=== PATIENT | male | born 1940 | race Asian ===

== ENCOUNTER 2016-12-03 09:01 | Outpatient (CLI) | payer OTHER, MEDICARE ==
[~2016-12-03 09:01] MED LIST: ASPI81TA2 PO; FINA5TAB3 PO; GLIM4TAB PO; INSU100V11 SQ; LISI-217 PO; METF1000 PO; PRAV40TA PO; PROP60TA19 PO; TAMS0.4C96 PO
[2016-12-03] MEDS ORDERED: BARIUM SULFATE 135 ML SUSP.RECON (E-Z-HD) PO ONE (09:28)
== END 2016-12-03 20:00 | disposition home or self-care (01) ==
LOC: SRD 09:01
PROVIDERS: ATTEND Otolaryngology
DX: R13.10 Dysphagia, unspecified (principal); R05 Cough
CPT/HCPCS: 74230; 92611-GN

== ENCOUNTER 2016-12-18 22:39 | Emergency (ER) | payer OTHER, MEDICARE ==
[~2016-12-18] VITALS: Ht 172.7 cm; Wt 83.9 kg
[2016-12-18 22:50] VITALS: BP 158/88; PULSE 77; RESP 18; TEMP 97.8; O2SAT 98
--- NOTE | 2016-12-18 22:50 | NUR ---
Pt reports having high blood pressure of 191/90, right before coming to the hospital. Pt denies having any chest pain, SOB, N/V etc. Reports he "feels fine" and that his blood pressure reading was high on his BP monitor at home. BP currently 158/88. No acute distress noted. Respirations even and unlabored. Will continue to monitor.
--- NOTE | 2016-12-18 22:50 | NUR ---
Placed in room 02 . Placed on lunchroom monitor, blood pressure machine and pulse oximeter. To gown for exam. Side rails up. Report given to MyANA.
--- NOTE | 2016-12-18 22:57 | NUR ---
ER Dr. Albright at bedside examining patient.
--- NOTE | 2016-12-18 23:05 | NUR ---
Pt BP currently 142/82, instructed to hold vasotec at this time
[2016-12-18] MEDS ORDERED: INSU100V9 SUBCUT (23:14)
[2016-12-18 23:22] LABS: HEMATOCRIT 38.8 % (36-54); MEAN CORPUSCULAR VOLUME 91 fL (79.0-98.0); RED BLOOD CELL COUNT(AUTO) 4.27 MIL/uL (4.2-6.2); WHITE BLOOD COUNT (AUTO) 5.2 K/uL (4.8-10.8)
[2016-12-18 23:23] LABS: BASOPHILS % (AUTO) 0.5 % (0.0-2.0); EOSINOPHILS # (AUTO) 0.3 K/uL (0.0-0.4); EOSINOPHILS % (AUTO) 6.3 % (0.0-4.0); LYMPHOCYTES # (AUTO) 1.6 K/uL (1.0-5.5); LYMPHOCYTES % (AUTO) 31.5 % (20.5-51.5); MEAN CORPUSCULAR HEMOGLOBIN 30 pg (27-31); MEAN CORPUSCULAR HGB CONC 33 % (32-36); MONOCYTES # (AUTO) 0.4 K/uL (0.0-1.0); NEUTROPHILS # (AUTO) 2.9 K/uL (1.8-7.7); NEUTROPHILS % (AUTO) 54.7 % (40.0-70.0); PLATELET COUNT (AUTO) 238 K/uL (130-430); RED CELL DISTRIBUTION WIDTH 12.8 % (9.0-15.0)
[2016-12-18] MEDS: ENALAPRILAT DIHYDRATE 1.25 MG/ML VIAL IVP ONE (23:23)
[2016-12-18 23:38] LABS: SODIUM SERUM 132 mmol/L (136-145)
[2016-12-18 23:39] LABS: ALANINE AMINOTRANSFERASE 28 U/L (12-78); ALBUMIN 3.6 g/dL (3.4-4.8); ANION GAP < 3 (5-15); ASPARTATE AMINOTRANSFERASE 19 U/L (10-37); CALCIUM 8.9 mg/dL (8.4-11.0); CHLORIDE 100 mmol/L (98-107); CREATININE 1.17 mg/dL (0.55-1.30); GLUCOSE 134 mg/dL (70-99); POTASSIUM 4.3 mmol/L (3.5-5.1); TOTAL BILIRUBIN 0.4 mg/dL (0.0-1.0); TOTAL PROTEIN, SERUM 8.8 g/dL (6.4-8.3); UREA NITROGEN, BLOOD 24 mg/dL (8-21)
[2016-12-18 23:41] LABS: PROTHROMBIN TIME 10.3 SECS (9.5-12.5)
[2016-12-18 23:42] LABS: INR 0.9 (0.80-1.20)
--- NOTE | 2016-12-19 00:04 | NUR ---
Patient given written and verbal discharge instructions and verbalizes understanding. ER MD discussed with patient the results and treatment provided. Patient in stable condition. ID arm band removed. Patient educated on HTN management and to follow up with PMD. Pain Scale 0/10. Opportunity for questions provided and answered.
[2016-12-19] MEDS: ENALAPRILAT DIHYDRATE 1.25 MG/ML VIAL IVP ONE (00:09)
== END 2016-12-19 00:04 | disposition home or self-care (01) ==
LOC: SED 22:39
DX: I10 Essential (primary) hypertension (principal); E78.00 Pure hypercholesterolemia, unspecified; E11.9 Type 2 diabetes mellitus without complications; Z79.4 Long term (current) use of insulin; Z79.82 Long term (current) use of aspirin; Z88.8 Allergy status to other drugs, medicaments and biological substances
CPT/HCPCS: 36415; 80053; 83880; 84484; 85025; 85379; 85610-TC; 85730-TC; 99284

== ENCOUNTER 2017-04-06 09:50 | Emergency (ER) | payer OTHER, MEDICARE ==
[~2017-04-06] VITALS: Ht 172.7 cm; Wt 83.9 kg
[~2017-04-06 09:50] MED LIST changes: -INSU100V11 SQ; +INSU100V9 SUBCUT
[2017-04-06 09:58] VITALS: BP_SYST 119
--- NOTE | 2017-04-06 10:02 | NUR ---
Patient to ER bed 02 to gown for evaluation. Side rails up. Report given to Memo
--- NOTE | 2017-04-06 10:05 | NUR ---
ER at bedside examining patient.
--- NOTE | 2017-04-06 10:20 | NUR ---
brought in by his , c/o right shoulder pain,limited ROM for three days,denies any injuries.
--- NOTE | 2017-04-06 10:27 | NUR ---
transported to [facility] via wheelchair
--- NOTE | 2017-04-06 10:57 | NUR ---
return back from [facility]
[2017-04-06] MEDS ORDERED: traMADol HCL HCL 50 MG TABLET (ULTRAM) PO ONE (11:00)
[2017-04-06] MEDS ORDERED: ONDANSETRON 4 MG ODT TAB PO ONE (11:00)
[2017-04-06 11:53] VITALS: BP_SYST 119
--- NOTE | 2017-04-06 11:54 | NUR ---
Patient given written and verbal discharge instructions and verbalizes understanding. ER MD discussed with patient the results and treatment provided. Patient in stable condition. ID arm band removed. Rx of Tramadol ,Zofran ,Tylenol given. Patient educated on pain management and to follow up with PMD. Pain Scale 3/10 tolerable for pt . Opportunity for questions provided and answered.
== END 2017-04-06 11:54 | disposition home or self-care (01) ==
LOC: SED 09:50
DX: M25.511 Pain in right shoulder (principal); I10 Essential (primary) hypertension; E11.9 Type 2 diabetes mellitus without complications; E78.00 Pure hypercholesterolemia, unspecified; Z79.82 Long term (current) use of aspirin; Z88.6 Allergy status to analgesic agent
CPT/HCPCS: 29105; 73030; 99284; Q0162

== ENCOUNTER 2019-03-21 23:43 | Emergency (ER) | payer OTHER, MEDICARE ==
[~2019-03-21] VITALS: Ht 170.2 cm; Wt 81.6 kg
[~2019-03-21 23:43] MED LIST changes: +ASPI-1155 PO; -ASPI81TA2 PO; +CALC-808 PO; +CARB-15 PO; +CARB-62 PO; +DILT120C89 PO; +GABA-529 PO; +GLUC-141 PO; +LISI-219 PO; +METO25TA3 PO; +MULT-1164 PO; +PRAM0.253 PO; +SOLI5TAB2 PO
[2019-03-22 00:01] VITALS: BP_SYST 129
[2019-03-22] MEDS ORDERED: NACL 0.9% 1,000 ML IV ONE ×2 (00:26→02:15)
[2019-03-22 01:01] LABS: BASOPHILS % (AUTO) 0.2 % (0.0-2.0); EOSINOPHILS % (AUTO) 0.3 % (0.0-4.0); HEMATOCRIT 37.7 % (36-54); HEMOGLOBIN 12.4 g/dL (14.0-18.0); LYMPHOCYTES # (AUTO) 0.8 K/uL (1.0-5.5); LYMPHOCYTES % (AUTO) 6.2 % (20.5-51.5); MEAN CORPUSCULAR HEMOGLOBIN 30 pg (27-31); MEAN CORPUSCULAR HGB CONC 33 % (32-36); MEAN CORPUSCULAR VOLUME 93 fL (79.0-98.0); MONOCYTES # (AUTO) 0.5 K/uL (0.0-1.0); MONOCYTES % (AUTO) 3.9 % (1.7-9.3); NEUTROPHILS % (AUTO) 89.4 % (40.0-70.0); PLATELET COUNT (AUTO) 318 K/uL (130-430); RED BLOOD CELL COUNT(AUTO) 4.06 MIL/uL (4.2-6.2); RED CELL DISTRIBUTION WIDTH 13.4 % (9.0-15.0); WHITE BLOOD COUNT (AUTO) 12.3 K/uL (4.8-10.8)
[2019-03-22 01:09] LABS: ANION GAP 7 (5-15); CALCIUM 9.9 mg/dL (8.4-11.0); CHLORIDE 92 mmol/L (98-107); CREATININE 1.09 mg/dL (0.55-1.30); GLUCOSE 160 mg/dL (70-99); POTASSIUM 4.4 mmol/L (3.5-5.1); SODIUM SERUM 125 mmol/L (136-145); UREA NITROGEN, BLOOD 26 mg/dL (8-21)
[2019-03-22 01:12] LABS: INR 0.9 (0.80-1.20); PROTHROMBIN TIME 9.7 SECS (9.5-12.5)
[2019-03-22 01:16] LABS: ALANINE AMINOTRANSFERASE 16 U/L (12-78); ALBUMIN 3.6 g/dL (3.4-4.8); AMYLASE 77 U/L (0-100); ASPARTATE AMINOTRANSFERASE 20 U/L (10-37); LIPASE 242 U/L (73-393); TOTAL BILIRUBIN 0.4 mg/dL (0.0-1.0)
[2019-03-22 02:42] LABS: BILIRUBIN,URINE NEGATIVE (NEGATIVE); BLOOD, URINE NEGATIVE (NEGATIVE); CLARITY/URINE CLEAR (CLEAR); COLOR,URINE YELLOW (YELLOW); GLUCOSE,URINE NEGATIVE (NEGATIVE); KETONES,URINE TRACE (NEGATIVE); LEUKOCYTE ESTERASE ,URINE NEGATIVE (NEGATIVE); NITRITE, URINE NEGATIVE (NEGATIVE); PH,URINE 7.5 (5.0-8.0); PROTEIN URINE 1+ (NEGATIVE); UROBILINOGEN,URINE 0.2 (0.2-1.0)
[2019-03-22] MEDS ORDERED: ONDANSETRON HCL 4 MG/2 ML VIAL IVP ONE ×2 (03:00→07:45)
[2019-03-22 03:07] LABS: BACTERIA,URINE FEW /HPF (None Seen); RBC,URINE 0-3 /HPF (0-3); WBC,URINE 0-3 /HPF (0-3)
[2019-03-22] MEDS ORDERED: D5NS 1,000 ML IV SCH (05:10)
[2019-03-22 07:40] VITALS: BP_SYST 146
[2019-03-22] MEDS ORDERED: NACL 0.9% 1,000 ML IV SCH (07:45)
== END 2019-03-22 07:40 | disposition short-term general hospital (02) ==
LOC: SED 23:43 → SMU 03-22 05:10 → UNDOADMIN 03-22 05:10 → SED 03-22 07:40
DX: M48.55XA Collapsed vertebra, not elsewhere classified, thoracolumbar region, initial encounter for fracture (principal); E87.1 Hypo-osmolality and hyponatremia; R06.02 Shortness of breath; I10 Essential (primary) hypertension; E11.9 Type 2 diabetes mellitus without complications; G20 Parkinson's disease; E78.00 Pure hypercholesterolemia, unspecified; N40.0 Benign prostatic hyperplasia without lower urinary tract symptoms; Z88.8 Allergy status to other drugs, medicaments and biological substances; Z79.82 Long term (current) use of aspirin; Z79.899 Other long term (current) drug therapy
CPT/HCPCS: 36415; 74176; 80053; 81000; 82150; 83690; 85025; 85610; 96361; 96374; 96376; 99285; J2405; J7030; J7060

== ENCOUNTER 2019-08-25 01:46 | Inpatient (IN) | payer OTHER, MEDICARE ==
[~2019-08-25] VITALS: Ht 170.2 cm; Wt 76.7 kg
[2019-08-25 01:50] VITALS: BP_SYST 131
[2019-08-25] MEDS ORDERED: NACL 0.9% 1,000 ML IV ONE (02:10)
[2019-08-25] MEDS ORDERED: ONDANSETRON HCL 4 MG/2 ML VIAL IVP ONE ×2 (02:15→03:15)
[2019-08-25] MEDS ORDERED: MORPHINE 4 MG/ML INJ. SYRINGE IVP ONE (02:15)
[2019-08-25] MEDS ORDERED: ACET-2634 PO (02:42)
[2019-08-25] MEDS ORDERED: IRBE1TAB PO (02:42)
[2019-08-25] MEDS ORDERED: MIRA50TA PO (02:42)
[2019-08-25] MEDS ORDERED: IBUP-2604 PO (02:42)
[2019-08-25] MEDS ORDERED: CYAN100T3 PO (02:42)
[2019-08-25] MEDS ORDERED: GLUC100017 PO (02:42)
[2019-08-25] MEDS ORDERED: KRIL1CAP22 PO (02:42)
[2019-08-25] MEDS ORDERED: COM200 PO (02:42)
[2019-08-25 02:52] LABS: BASOPHILS % (AUTO) 0.1 % (0.0-2.0); HEMATOCRIT 38.1 % (36-54); LYMPHOCYTES # (AUTO) 0.4 K/uL (1.0-5.5); LYMPHOCYTES % (AUTO) 4.5 % (20.5-51.5); MEAN CORPUSCULAR HEMOGLOBIN 31 pg (27-31); MEAN CORPUSCULAR HGB CONC 34 % (32-36); MEAN CORPUSCULAR VOLUME 91 fL (79.0-98.0); MONOCYTES # (AUTO) 0.3 K/uL (0.0-1.0); MONOCYTES % (AUTO) 3.7 % (1.7-9.3); NEUTROPHILS # (AUTO) 8.8 K/uL (1.8-7.7); NEUTROPHILS % (AUTO) 91.7 % (40.0-70.0); PLATELET COUNT (AUTO) 310 K/uL (130-430); RED BLOOD CELL COUNT(AUTO) 4.17 MIL/uL (4.2-6.2); RED CELL DISTRIBUTION WIDTH 13.4 % (9.0-15.0); WHITE BLOOD COUNT (AUTO) 9.5 K/uL (4.8-10.8)
[2019-08-25 03:09] LABS: ANION GAP 5 (5-15); CALCIUM 8.7 mg/dL (8.4-11.0); CREATININE 1.14 mg/dL (0.55-1.30); GLUCOSE 217 mg/dL (70-99); POTASSIUM 4.1 mmol/L (3.5-5.1); SODIUM SERUM 125 mmol/L (136-145); UREA NITROGEN, BLOOD 30 mg/dL (8-21)
[2019-08-25 03:13] LABS: PROTHROMBIN TIME 9.9 SECS (9.5-12.5)
[2019-08-25 03:14] LABS: ALANINE AMINOTRANSFERASE 14 U/L (12-78); ALBUMIN 3.7 g/dL (3.4-4.8); ASPARTATE AMINOTRANSFERASE 21 U/L (10-37); LIPASE 602 U/L (73-393); TOTAL BILIRUBIN 0.6 mg/dL (0.0-1.0)
[2019-08-25 03:19] LABS: CHLORIDE 84 mmol/L (98-107)
[2019-08-25] MEDS ORDERED: PROMETHAZINE INJ.Non-Formulary 25 MG/ML AMP IVP ONE (05:00)
[2019-08-25] MEDS ORDERED: PROCHLORPERAZINE EDISYLATE 10 MG/2 ML VIAL IVP ONE (05:30)
[2019-08-25] MEDS ORDERED: DIPHENHYDRAMINE INJ 50 MG/ML VIAL IVP ONE (05:30)
[2019-08-25] MEDS ORDERED: D5NS 1,000 ML IV SCH (05:59)
[2019-08-25 07:00] VITALS: BP_SYST 138
[2019-08-25] MEDS ORDERED: METOCLOPRAMIDE HCL 10 MG/2 ML VIAL IVP PRN (07:15)
[2019-08-25] MEDS ORDERED: ONDANSETRON HCL 4 MG/2 ML VIAL IVP PRN (07:15)
[2019-08-25] MEDS ORDERED: ACETAMINOPHEN 325 MG TABLET PO PRN (07:15)
[2019-08-25 08:04] VITALS: BP_SYST 138
[2019-08-25] MEDS: MORPHINE 2 MG/ML INJ. SYRINGE IVP PRN (10:23)
[2019-08-25] MEDS ORDERED: DEXTROSE 50% JECT 50 ML DISP.SYRIN IVP PRN (10:30)
[2019-08-25] MEDS ORDERED: DILTIAZEM HCL 180 MG CAP.SR.24H PO ONE (12:45)
[2019-08-25] MEDS ORDERED: LR 500 ML IV ONE ×3 (17:14→18:45)
[2019-08-25] MEDS ORDERED: LR 1,000 ML IV SCH (17:15)
[2019-08-25] MEDS ORDERED: LR 1,000 ML IV ONE (18:30)
[2019-08-25] MEDS: LR 1,000 ML IV SCH (18:50)
[2019-08-25 20:00] VITALS: BP_SYST 103
[2019-08-25] MEDS ORDERED: DILTIAZEM HCL 120 MG CAP.SR.24H PO SCH (21:00)
[2019-08-25] MEDS: TAMSULOSIN HCL 0.4 MG CAP PO SCH (21:00)
[2019-08-25] MEDS ORDERED: ACETAMINOPHEN 650 MG SUPP.RECT RC PRN (23:30)
[2019-08-25] MEDS ORDERED: NACL 0.9% 1,000 ML IV SCH (23:30)
[2019-08-26 00:19] VITALS: BP_SYST 89
[2019-08-26] MEDS: LR 1,000 ML IV SCH (05:53)
[2019-08-26 07:17] LABS: BASOPHILS % (AUTO) 0.1 % (0.0-2.0); EOSINOPHILS % (AUTO) 0.1 % (0.0-4.0); HEMATOCRIT 32.6 % (36-54); HEMOGLOBIN 11.2 g/dL (14.0-18.0); LYMPHOCYTES # (AUTO) 0.8 K/uL (1.0-5.5); LYMPHOCYTES % (AUTO) 8.6 % (20.5-51.5); MEAN CORPUSCULAR HEMOGLOBIN 31 pg (27-31); MEAN CORPUSCULAR HGB CONC 34 % (32-36); MEAN CORPUSCULAR VOLUME 91 fL (79.0-98.0); MONOCYTES # (AUTO) 0.3 K/uL (0.0-1.0); NEUTROPHILS # (AUTO) 8.3 K/uL (1.8-7.7); NEUTROPHILS % (AUTO) 88.2 % (40.0-70.0); PLATELET COUNT (AUTO) 241 K/uL (130-430); RED BLOOD CELL COUNT(AUTO) 3.58 MIL/uL (4.2-6.2); RED CELL DISTRIBUTION WIDTH 13.2 % (9.0-15.0); WHITE BLOOD COUNT (AUTO) 9.5 K/uL (4.8-10.8)
[2019-08-26 07:59] LABS: ANION GAP 5 (5-15); CALCIUM 7.5 mg/dL (8.4-11.0); CHLORIDE 93 mmol/L (98-107); CREATININE 0.97 mg/dL (0.55-1.30); GLUCOSE 74 mg/dL (70-99); SODIUM SERUM 130 mmol/L (136-145); UREA NITROGEN, BLOOD 33 mg/dL (8-21)
[2019-08-26 08:00] VITALS: BP_SYST 121
[2019-08-26] MEDS: KCL 20 mEq in D5/0.45NS 1000mL 1,000 ML IV SCH ×2 (08:00→12:23)
[2019-08-26] MEDS: TAMSULOSIN HCL 0.4 MG CAP PO SCH ×2 (09:00→21:14)
[2019-08-26] MEDS: DILTIAZEM HCL 180 MG CAP.SR.24H PO SCH (09:00)
[2019-08-26] MEDS ORDERED: POTASSIUM CHLORIDE 40 MEQ in NS 250 ML IV SCH (10:02)
[2019-08-26] MEDS ORDERED: GASTROGRAFIN 120 ML ONE (11:22)
[2019-08-26 12:29] VITALS: BP_SYST 123
[2019-08-26 16:44] VITALS: BP_SYST 147
[2019-08-26] MEDS: MORPHINE 4 MG/ML INJ. SYRINGE IVP PRN ×2 (16:48→21:16)
[2019-08-26 19:00] VITALS: BP_SYST 136
[2019-08-26 20:00] VITALS: BP_SYST 136
[2019-08-27] VITALS: BP_SYST 135
[2019-08-27] MEDS: MORPHINE 4 MG/ML INJ. SYRINGE IVP PRN ×2 (01:08→08:20)
[2019-08-27] MEDS: KCL 20 mEq in D5/0.45NS 1000mL 1,000 ML IV SCH (03:00)
[2019-08-27 06:40] LABS: BASOPHILS % (AUTO) 0.2 % (0.0-2.0); EOSINOPHILS # (AUTO) 0.1 K/uL (0.0-0.4); EOSINOPHILS % (AUTO) 0.8 % (0.0-4.0); HEMATOCRIT 33.5 % (36-54); HEMOGLOBIN 11.4 g/dL (14.0-18.0); LYMPHOCYTES # (AUTO) 1.1 K/uL (1.0-5.5); LYMPHOCYTES % (AUTO) 14.6 % (20.5-51.5); MEAN CORPUSCULAR HEMOGLOBIN 31 pg (27-31); MEAN CORPUSCULAR HGB CONC 34 % (32-36); MEAN CORPUSCULAR VOLUME 92 fL (79.0-98.0); MONOCYTES # (AUTO) 0.3 K/uL (0.0-1.0); MONOCYTES % (AUTO) 4.3 % (1.7-9.3); NEUTROPHILS % (AUTO) 80.1 % (40.0-70.0); PLATELET COUNT (AUTO) 231 K/uL (130-430); RED BLOOD CELL COUNT(AUTO) 3.65 MIL/uL (4.2-6.2); RED CELL DISTRIBUTION WIDTH 13.4 % (9.0-15.0); WHITE BLOOD COUNT (AUTO) 7.5 K/uL (4.8-10.8)
[2019-08-27 07:09] LABS: ALANINE AMINOTRANSFERASE 24 U/L (12-78); ALBUMIN 2.5 g/dL (3.4-4.8); ANION GAP 5 (5-15); ASPARTATE AMINOTRANSFERASE 24 U/L (10-37); CALCIUM 7.4 mg/dL (8.4-11.0); CHLORIDE 98 mmol/L (98-107); CREATININE 0.88 mg/dL (0.55-1.30); GLUCOSE 120 mg/dL (70-99); POTASSIUM 3.4 mmol/L (3.5-5.1); SODIUM SERUM 132 mmol/L (136-145); TOTAL BILIRUBIN 0.3 mg/dL (0.0-1.0); UREA NITROGEN, BLOOD 24 mg/dL (8-21)
[2019-08-27 08:00] VITALS: BP_SYST 159
[2019-08-27] MEDS: DILTIAZEM HCL 180 MG CAP.SR.24H PO SCH (08:38)
[2019-08-27] MEDS: TAMSULOSIN HCL 0.4 MG CAP PO SCH ×2 (08:38→22:06)
[2019-08-27] MEDS: INSULIN REGULAR, HUMAN 100 UNITS/ML, 10 ML VIAL (humuLIN R) SUBCUT PRN ×2 (12:19→17:38)
[2019-08-27 12:54] VITALS: BP_SYST 148
[2019-08-27] MEDS ORDERED: POTASSIUM CHLORIDE 40 MEQ, LIDOCAINE JECT 2% PF 100 MG 50 MG in NS 250 ML IV ONE (13:30)
[2019-08-27] MEDS ORDERED: ACETAMINOPHEN 500 MG TABLET PO PRN (13:30)
[2019-08-27] MEDS: GABAPENTIN 100 MG CAPSULE PO SCH ×2 (14:20→22:06)
[2019-08-27] MEDS ORDERED: CARBIDOPA/LEVODOPA 25/250 MG TABLET PO SCH ×2 (15:00→22:00)
[2019-08-27] MEDS: COMTAN 200 MG TAB PO SCH ×2 (15:08→18:49)
[2019-08-27] MEDS: CARBIDOPA/LEVODOPA 25/250 MG TABLET PO SCH (15:51)
[2019-08-27] MEDS ORDERED: PRAM1TAB5 PO (16:11)
[2019-08-27] MEDS: POTASSIUM CHLORIDE 30 MEQ in NACL 0.9% 1,000 ML IV SCH (16:19)
[2019-08-27 17:14] VITALS: BP_SYST 120
[2019-08-27] MEDS ORDERED: GLIMEPIRIDE 2 MG TABLET PO ONE (17:30)
[2019-08-27] MEDS ORDERED: CARBIDOPA/LEVODOPA 25/250 MG TABLET PO ONE (19:00)
[2019-08-27 19:45] VITALS: BP_SYST 149
[2019-08-27] MEDS ORDERED: COMTAN 200 MG TAB PO SCH (22:00)
[2019-08-27 23:30] VITALS: BP_SYST 141
[2019-08-28] MEDS: MORPHINE 2 MG/ML INJ. SYRINGE IVP PRN (03:10)
[2019-08-28 05:46] LABS: ALANINE AMINOTRANSFERASE 8 U/L (12-78); ALBUMIN 2.4 g/dL (3.4-4.8); ANION GAP 3 (5-15); ASPARTATE AMINOTRANSFERASE 29 U/L (10-37); CALCIUM 7.1 mg/dL (8.4-11.0); CHLORIDE 97 mmol/L (98-107); CREATININE 0.72 mg/dL (0.55-1.30); GLUCOSE 139 mg/dL (70-99); SODIUM SERUM 128 mmol/L (136-145); TOTAL BILIRUBIN 0.4 mg/dL (0.0-1.0); UREA NITROGEN, BLOOD 14 mg/dL (8-21)
[2019-08-28 06:29] LABS: BASOPHILS % (AUTO) 0.1 % (0.0-2.0); EOSINOPHILS # (AUTO) 0.1 K/uL (0.0-0.4); EOSINOPHILS % (AUTO) 2.2 % (0.0-4.0); HEMATOCRIT 32.2 % (36-54); HEMOGLOBIN 10.9 g/dL (14.0-18.0); LYMPHOCYTES # (AUTO) 0.8 K/uL (1.0-5.5); LYMPHOCYTES % (AUTO) 13.4 % (20.5-51.5); MEAN CORPUSCULAR HEMOGLOBIN 31 pg (27-31); MEAN CORPUSCULAR HGB CONC 34 % (32-36); MEAN CORPUSCULAR VOLUME 92 fL (79.0-98.0); MONOCYTES # (AUTO) 0.4 K/uL (0.0-1.0); MONOCYTES % (AUTO) 6.4 % (1.7-9.3); NEUTROPHILS # (AUTO) 4.7 K/uL (1.8-7.7); NEUTROPHILS % (AUTO) 77.9 % (40.0-70.0); PLATELET COUNT (AUTO) 228 K/uL (130-430); RED BLOOD CELL COUNT(AUTO) 3.52 MIL/uL (4.2-6.2); WHITE BLOOD COUNT (AUTO) 6.1 K/uL (4.8-10.8)
[2019-08-28] MEDS: COMTAN 200 MG TAB PO SCH ×2 (06:31→09:30)
[2019-08-28] MEDS: CARBIDOPA/LEVODOPA 25/250 MG TABLET PO SCH ×2 (06:32→09:30)
[2019-08-28 08:00] VITALS: BP_SYST 162
[2019-08-28] MEDS ORDERED: LOSARTAN POTASSIUM 50 MG TABLET (COZAAR) PO SCH (09:00)
[2019-08-28] MEDS ORDERED: MULTIVITS,CA,MINERALS/IRON/FA 1 TABLET PO SCH (09:00)
[2019-08-28] MEDS ORDERED: CYANOCOBALAMIN 1000 mCg TABLET PO SCH (09:00)
[2019-08-28] MEDS ORDERED: METOPROLOL SUCCINATE 25 MG TAB.SR.24H (TOPROL XL) PO SCH (09:00)
[2019-08-28] MEDS ORDERED: HYDROCHLOROTHIAZIDE 12.5 MG CAPSULE (HCTZ) PO SCH (09:00)
[2019-08-28] MEDS ORDERED: FINASTERIDE 5 MG TABLET (PROSCAR) PO SCH (09:00)
[2019-08-28] MEDS: GABAPENTIN 100 MG CAPSULE PO SCH (09:30)
[2019-08-28] MEDS: TAMSULOSIN HCL 0.4 MG CAP PO SCH (09:30)
[2019-08-28] MEDS: DILTIAZEM HCL 180 MG CAP.SR.24H PO SCH (09:31)
[2019-08-28] MEDS: POTASSIUM CHLORIDE 30 MEQ in NACL 0.9% 1,000 ML IV SCH (09:38)
[2019-08-28 11:04] VITALS: BP_SYST 145
[2019-08-28] MEDS ORDERED: GLIMEPIRIDE 2 MG TABLET PO SCH (11:30)
[2019-08-28 12:06] VITALS: BP_SYST 145
[2019-08-28] MEDS ORDERED: ATORVASTATIN 10 MG TABLET PO SCH (21:00)
== END 2019-08-28 12:00 | disposition home or self-care (01) | DRG 389 ==
LOC: SED 01:46 → SMU 05:59
PROVIDERS: ADMIT Internal Medicine Hospice and Palliative Medicine; ATTEND Internal Medicine Hospice and Palliative Medicine
DX: K56.50 Intestinal adhesions [bands], unspecified as to partial versus complete obstruction (principal); E87.1 Hypo-osmolality and hyponatremia; E44.0 Moderate protein-calorie malnutrition; E11.9 Type 2 diabetes mellitus without complications; D63.8 Anemia in other chronic diseases classified elsewhere; E87.6 Hypokalemia; N40.0 Benign prostatic hyperplasia without lower urinary tract symptoms; I10 Essential (primary) hypertension; G20 Parkinson's disease; Z88.6 Allergy status to analgesic agent; Z79.899 Other long term (current) drug therapy; Z68.26 Body mass index [BMI] 26.0-26.9, adult
CPT/HCPCS: 36415; 71045; 74250-TC; 80048; 80053; 82962; 83690-TC; 83735-TC; 84484; 85025; 85610-TC; 85730-TC; 93005; 96361; 96374; 96375; 99285; J0780; J1200; J1815; J2270; J2405; J2550; J3480; J7030; J7042; J7050; J7120; Q9963

== ENCOUNTER 2019-10-19 12:11 | Inpatient (IN) | payer OTHER, MEDICARE ==
[~2019-10-19] VITALS: Ht 170.2 cm; Wt 72.6 kg
[~2019-10-19 12:11] MED LIST changes: +ACET-2634 PO; -ASPI-1155 PO; -CALC-808 PO; -CARB-15 PO; +COM200 PO; +CYAN100T3 PO; -GLUC-141 PO; +GLUC100017 PO; +IBUP-2604 PO; +IRBE1TAB PO; +KRIL1CAP22 PO; -LISI-217 PO; -LISI-219 PO; +MIRA50TA PO; -PRAM0.253 PO; +PRAM1TAB5 PO; -PROP60TA19 PO; -SOLI5TAB2 PO
--- NOTE | 2019-10-19 12:14 | NUR ---
Placed in room 03 . Placed on child monitor, blood pressure machine and pulse oximeter. To gown for exam. Side rails up.
[2019-10-19 12:15] VITALS: BP_SYST 89
--- NOTE | 2019-10-19 12:16 | NUR ---
Pt brought by , A&Ox4, pt presents to ER with low blood pressure, pt states he went to urologist this morning and was told his blood pressure was low, pt denies pain or any symptoms, skin pink and warm, cap refill <3, respirations even and unlabored, pt BP 89/51 MD notified, pt able to transfer to the bed with assistance, denies bleeding, denies N/V.
--- NOTE | 2019-10-19 13:06 | NUR ---
Dr De Los Santos at bedside examining patient
[2019-10-19] MEDS ORDERED: NACL 0.9% 1,000 ML IV ONE (13:15)
[2019-10-19 13:24] LABS: ANION GAP 5 (5-15); BASOPHILS % (AUTO) 0.4 % (0.0-2.0); CALCIUM 8.9 mg/dL (8.4-11.0); CHLORIDE 93 mmol/L (98-107); CREATININE 1.28 mg/dL (0.55-1.30); EOSINOPHILS % (AUTO) 0.7 % (0.0-4.0); GLUCOSE 131 mg/dL (70-99); HEMATOCRIT 30.4 % (36-54); HEMOGLOBIN 10.3 g/dL (14.0-18.0); LYMPHOCYTES # (AUTO) 1.3 K/uL (1.0-5.5); MEAN CORPUSCULAR HEMOGLOBIN 31 pg (27-31); MEAN CORPUSCULAR HGB CONC 34 % (32-36); MEAN CORPUSCULAR VOLUME 91 fL (79.0-98.0); MONOCYTES # (AUTO) 0.3 K/uL (0.0-1.0); MONOCYTES % (AUTO) 6.1 % (1.7-9.3); NEUTROPHILS # (AUTO) 3.9 K/uL (1.8-7.7); NEUTROPHILS % (AUTO) 69.8 % (40.0-70.0); PLATELET COUNT (AUTO) 373 K/uL (130-430); RED BLOOD CELL COUNT(AUTO) 3.36 MIL/uL (4.2-6.2); RED CELL DISTRIBUTION WIDTH 13.6 % (9.0-15.0); SODIUM SERUM 123 mmol/L (136-145); UREA NITROGEN, BLOOD 21 mg/dL (8-21); WHITE BLOOD COUNT (AUTO) 5.6 K/uL (4.8-10.8)
[2019-10-19 13:30] LABS: ALANINE AMINOTRANSFERASE 12 U/L (12-78); ASPARTATE AMINOTRANSFERASE 18 U/L (10-37); TOTAL BILIRUBIN 0.3 mg/dL (0.0-1.0)
--- NOTE | 2019-10-19 14:46 | NUR ---
PT RESTING IN BED VSS, NO DISTRESS NOTED
--- NOTE | 2019-10-19 15:01 | NUR ---
Medication reconciliation completed with information provided by Dr. Thurman's office and personal med list. Any prior medication reconciliation on file was reviewed and corrected.
[2019-10-19] MEDS ORDERED: DEXTROSE 50% JECT 50 ML DISP.SYRIN IVP PRN (16:00)
[2019-10-19] MEDS ORDERED: ACETAMINOPHEN 500 MG TABLET PO PRN (16:00)
--- NOTE | 2019-10-19 16:05 | NUR ---
Patient will be admitted to care of DR MYLES. Admitted to TELE unit. Will go to room 111A. Belongings list completed. Complete and up to date summary report printed. SBAR report to be given at bedside with opportunity for questions. REPORT GIVEN TO
[2019-10-19 16:10] VITALS: BP_SYST 146
--- NOTE | 2019-10-19 16:19 | NUR ---
admission notes rec patient from er with dx of hypotension. awake laert with ivl on the l forearm intact. no infiltration noted. no dizziness noted but c/o numbness of the ower extremities. voided using the urinal with large amount of zoey ouptut no osb noted. oriented to room setting.
[2019-10-19] MEDS: NACL 0.9% 1,000 ML IV SCH (18:17)
[2019-10-19] MEDS: CARBIDOPA/LEVODOPA 25/250 MG TABLET PO SCH ×2 (18:17→21:28)
--- NOTE | 2019-10-19 18:28 | NUR ---
rounds no hypo hyperglycemic reaction noted. denies pain . eating dinner at bedside. no sob noted.
--- NOTE | 2019-10-19 19:30 | NUR ---
Opening notes Received report. Patient is resting in bed. No signs of distress noted. Breathing even and unlabored. IV patent and intact, infusing fluids. No needs at this time. at bedside. Call light with the patient. Safety precautions in place.
[2019-10-19 20:00] VITALS: BP_SYST 149
--- NOTE | 2019-10-19 21:00 | NUR ---
Medications given. Educated the action and side effects of medications. Patient verbalized understanding and tolerated well. Patient assisted to bedside commode. Patient still weak. Patient had BM. Patient provided hygiene care to self. Patient assisted back into bed. No other needs. Call light with the patient. Safety precautions in place.
[2019-10-19 23:36] LABS: BILIRUBIN,URINE NEGATIVE (NEGATIVE); BLOOD, URINE NEGATIVE (NEGATIVE); CLARITY/URINE CLEAR (CLEAR); COLOR,URINE YELLOW (YELLOW); GLUCOSE,URINE 1+ (NEGATIVE); KETONES,URINE NEGATIVE (NEGATIVE); LEUKOCYTE ESTERASE ,URINE NEGATIVE (NEGATIVE); NITRITE, URINE NEGATIVE (NEGATIVE); PROTEIN URINE NEGATIVE (NEGATIVE); UROBILINOGEN,URINE 0.2 (0.2-1.0)
--- NOTE | 2019-10-20 | NUR ---
Accucheck 81 No insulin coverage necessary. Provided patient with orange juice and ice water per patient request. No other needs. Call light with the patient. Safety precautions in place.
[2019-10-20] MEDS: CARBIDOPA/LEVODOPA 25/250 MG TABLET PO SCH ×8 (00:15→20:38)
[2019-10-20 00:16] VITALS: BP_SYST 122
--- NOTE | 2019-10-20 02:55 | NUR ---
Refused sinemet at this time. Patient states he only takes sinemet every 3 hours during the day. No signs of distress noted. Breathing even and unlabored. IVF infusing well. Call light with the patient. Safety precautions in place.
--- NOTE | 2019-10-20 05:00 | NUR ---
Hygiene Assisted patient with bed bath and pericare as needed. Patient is now clean and dry, resting comfortably in bed. All linen and patient gown has been changed as needed. Call light within reach. Encouraged patient to call for assistance.
[2019-10-20] MEDS: NACL 0.9% 1,000 ML IV SCH ×2 (05:33→21:21)
--- NOTE | 2019-10-20 07:50 | NUR ---
AM ASSESSMENT. PT ABLE TO EXPRESS BASIC NEEDS, PT ASKED HELP ON GETTING OFF THE COMMODE, WITH DIFFICULTY OF MOVING HIS LEGS, HX NEUROPATHY, ASSISTED PT, CLEANSED PERINEAL AREA WITH SOAPY TOWEL, RINSED SKIN WITH WET TOWEL, AND PLACED PT BACK IN BED.
--- NOTE | 2019-10-20 07:55 | NUR ---
Closing notes Patient is resting in bed. No signs of distress noted. Breathing even and unlabored. IV patent and intact, infusing fluids. No needs at this time. Call light with the patient. Safety precautions in place. All needs have been met at this time. Accu check 56, given juice and crackers. Blood sugar recheck at 71. Encouraged patient to eat breakfast. Endorsement of care given to dayshift nurse.
[2019-10-20 08:00] VITALS: BP_SYST 155
--- NOTE | 2019-10-20 09:52 | NUR ---
Nutrition Update Wilmer Scale 16 noted. Pt admitted for hyponatremia. Diet: [facility] BMI: 25.1 kg/m2 RD to follow per nutrition care standards.
--- NOTE | 2019-10-20 10:00 | NUR ---
HYGIENE. PT SUPERVISED AND WAS ASSISTED TO GET IN BED, LARGE AMOUNT OF SOFT STOOL NOTED, HELPED PT CLEAN WITH WET TOWEL, LINEN CHANGED NEEDED.
--- NOTE | 2019-10-20 10:08 | NUR ---
CONSULT CARDIOLOGY HYPOTENSION DR FAULKNER [phone] S/W [facility] OFFICE
[2019-10-20 10:15] LABS: BASOPHILS % (AUTO) 0.4 % (0.0-2.0); EOSINOPHILS % (AUTO) 0.6 % (0.0-4.0); HEMATOCRIT 34.1 % (36-54); HEMOGLOBIN 11.2 g/dL (14.0-18.0); LYMPHOCYTES % (AUTO) 33.8 % (20.5-51.5); MEAN CORPUSCULAR HEMOGLOBIN 30 pg (27-31); MEAN CORPUSCULAR HGB CONC 33 % (32-36); MEAN CORPUSCULAR VOLUME 91 fL (79.0-98.0); MONOCYTES # (AUTO) 0.3 K/uL (0.0-1.0); MONOCYTES % (AUTO) 5.5 % (1.7-9.3); NEUTROPHILS # (AUTO) 3.5 K/uL (1.8-7.7); NEUTROPHILS % (AUTO) 59.7 % (40.0-70.0); PLATELET COUNT (AUTO) 414 K/uL (130-430); RED BLOOD CELL COUNT(AUTO) 3.76 MIL/uL (4.2-6.2); WHITE BLOOD COUNT (AUTO) 5.8 K/uL (4.8-10.8)
[2019-10-20 11:28] LABS: ANION GAP 8 (5-15); CALCIUM 8.8 mg/dL (8.4-11.0); CHLORIDE 93 mmol/L (98-107); CREATININE 1.01 mg/dL (0.55-1.30); GLUCOSE 195 mg/dL (70-99); POTASSIUM 4.6 mmol/L (3.5-5.1); SODIUM SERUM 126 mmol/L (136-145); UREA NITROGEN, BLOOD 14 mg/dL (8-21)
[2019-10-20 11:40] LABS: ALANINE AMINOTRANSFERASE 12 U/L (12-78); ALBUMIN 3.2 g/dL (3.4-4.8); ASPARTATE AMINOTRANSFERASE 23 U/L (10-37); TOTAL BILIRUBIN 0.3 mg/dL (0.0-1.0)
[2019-10-20 12:00] VITALS: BP_SYST 114
[2019-10-20 12:07] LABS: CHOLESTEROL 153 mg/dL (<200); HDL CHOLESTEROL 47 mg/dL (>45); LDL CHOLESTEROL 79 mg/dL (<100); TRIGLYCERIDES 134 mg/dL (30-150)
--- NOTE | 2019-10-20 15:00 | NUR ---
NURSING. PT UPSET, "MY HAND IS TREMBLING, YOU ARE NOT GIVING ME MY SINEMET". EDUCATION PROVIDED WITH REGARDS TO SCHEDULE OF HIS MEDICATIONS, LIST OF HIS HOME MEDS WAS PULLED OUT FROM HIS TOTE BAG, INCLUDING PILL BOX WITH SULFAMETH. CALLED UP DR CASTILLO TO RECONCILE OTHER MEDS.
--- NOTE | 2019-10-20 15:13 | NUR ---
. DR PAULA CALLED BACK , [employer] FOR DR CASTILLO. NEW ORDERS RECEIVED. PT AND HIS MADE AWARE OF THE ORDERS.
[2019-10-20] MEDS ORDERED: GABAPENTIN 100 MG CAPSULE PO ONE ×2 (15:15→15:45)
[2019-10-20] MEDS ORDERED: FINASTERIDE 5 MG TABLET (PROSCAR) PO ONE (15:15)
[2019-10-20] MEDS ORDERED: METOPROLOL SUCCINATE 25 MG TAB.SR.24H (TOPROL XL) PO ONE (15:15)
[2019-10-20 15:37] VITALS: BP_SYST 149
[2019-10-20] MEDS ORDERED: PRAMIPEXOLE DI-HCL 1 MG TABLET PO ONE (15:45)
[2019-10-20] MEDS ORDERED: COMTAN 200 MG TAB PO ONE (15:45)
[2019-10-20] MEDS: metFORMIN HCL 500 MG TABLET PO SCH (17:52)
[2019-10-20] MEDS: COMTAN 200 MG TAB PO SCH ×2 (17:53→20:37)
--- NOTE | 2019-10-20 17:53 | NUR ---
FSBS. PT'S BLOOD SUGAR CHECKED, 146 MG/DL, PT DENIES ANY BODY DISCOMFORT, ALL NEEDS ATTENDED.
[2019-10-20] MEDS: PRAMIPEXOLE DI-HCL 1 MG TABLET PO SCH (20:37)
[2019-10-20] MEDS: GABAPENTIN 100 MG CAPSULE PO SCH (20:37)
[2019-10-20] MEDS: ATORVASTATIN 10 MG TABLET PO SCH (20:38)
[2019-10-20] MEDS: TAMSULOSIN HCL 0.4 MG CAP PO SCH (20:38)
[2019-10-20] MEDS: GLIMEPIRIDE 2 MG TABLET PO SCH (20:39)
[2019-10-20] MEDS ORDERED: BACTRIM DS PO ONE (21:00)
[2019-10-20] MEDS ORDERED: INSULIN GLARGINE 100 UNITS/ML 10 ML VIAL SUBCUT SCH (21:00)
[2019-10-20 21:05] VITALS: BP_SYST 108
[2019-10-20] MEDS: DILTIAZEM HCL 90 MG TABLET PO SCH (21:05)
[2019-10-20] MEDS: METOPROLOL TARTRATE 25 MG TABLET PO SCH (21:13)
[2019-10-20] MEDS ORDERED: DILTIAZEM HCL 180 MG CAP.SR.24H PO ONE (21:56)
[2019-10-21] VITALS: BP_SYST 93
[2019-10-21] MEDS: CARBIDOPA/LEVODOPA 25/250 MG TABLET PO SCH ×8 (00:04→21:06)
[2019-10-21] MEDS: COMTAN 200 MG TAB PO SCH ×8 (00:08→21:05)
--- NOTE | 2019-10-21 00:15 | NUR ---
Paged Dr. Waterman [phone], s/w Petra
[2019-10-21] MEDS ORDERED: TEMAZEPAM 15 MG CAPSULE PO PRN (00:30)
--- NOTE | 2019-10-21 00:55 | NUR ---
Spoke w Dr. Waterman re pt's request for HS sleeping med. Dr. Waterman ordered Restoril 15mg po qHS prn Insomnia. Prior to administration pt's BP taken bilat. UpperArms (L 97/54,67; R 90/54,66). Pt instructed on importance of fall prevention by using call light in the event of needing to void during night. Pt verbalized understanding and still insisted on taking the Restoril for sleep. Pt also began talking about some of his med records where he found (from August,) that his physician discontinued his diltiazem due to low BP. Will report to day RN re pt's request for holding diltiazem. Addendum: 10/21/19 at 0106 by [employer] Pt also requested that his 0300 meds be held due to need for sleep. He did add that he would resume medications at 0600.
--- NOTE | 2019-10-21 06:48 | NUR ---
Pt voided 900ml this morning (350ml urinal+550ml BSC). BS this AM was 95. Pt in stable condition.
--- NOTE | 2019-10-21 07:50 | NUR ---
RECEIVED REPORT FROM DITCH REPAIRER RN AT BEDSIDE. Pt AAOX4, SKIN W/D TO TOUCH OOB TO CHAIR, TALKATIVE W/ SON AT BEDSIDE.
[2019-10-21 08:15] VITALS: BP_SYST 74
[2019-10-21] MEDS: METOPROLOL TARTRATE 25 MG TABLET PO SCH ×2 (09:00→21:06)
[2019-10-21] MEDS: DILTIAZEM HCL 90 MG TABLET PO SCH ×2 (09:00→21:04)
[2019-10-21 09:11] LABS: CORTISOL (SERUM) 15.6 ug/dL (.)
[2019-10-21 09:12] LABS: ANION GAP 4 (5-15); CALCIUM 8.6 mg/dL (8.4-11.0); CHLORIDE 94 mmol/L (98-107); CREATININE 1.03 mg/dL (0.55-1.30); GLUCOSE 239 mg/dL (70-99); POTASSIUM 4.9 mmol/L (3.5-5.1); SODIUM SERUM 124 mmol/L (136-145); UREA NITROGEN, BLOOD 14 mg/dL (8-21)
[2019-10-21 09:23] LABS: ALANINE AMINOTRANSFERASE 10 U/L (12-78); ALBUMIN 2.8 g/dL (3.4-4.8); ASPARTATE AMINOTRANSFERASE 20 U/L (10-37); TOTAL BILIRUBIN 0.4 mg/dL (0.0-1.0)
[2019-10-21] MEDS: NACL 0.9% 1,000 ML IV SCH ×2 (10:09→21:10)
--- NOTE | 2019-10-21 10:20 | NUR ---
PT VS DONE BP 74/54, IVF NS INFUSING AT 70 ML/HR VIA PUMP, Pt VOICES NO C/O OF H/A, DIZZINESS, OR LIGHTHEADEDNESS. ASYMPTOMATIC LOW BP, WILL CONTINUE TO MONITOR FOR CHANGE IN STATUS. BP MEDS NON-ADMNISTERED DUE TO LOW BLOOD PRESSURE.
[2019-10-21] MEDS ORDERED: NS 500 ML IV ONE (11:15)
[2019-10-21] MEDS: GLIMEPIRIDE 2 MG TABLET PO SCH ×2 (11:25→21:06)
[2019-10-21] MEDS: metFORMIN HCL 500 MG TABLET PO SCH ×2 (11:26→17:51)
[2019-10-21] MEDS: GABAPENTIN 100 MG CAPSULE PO SCH ×3 (11:26→21:06)
[2019-10-21] MEDS: MULTIVITS,CA,MINERALS/IRON/FA 1 TABLET PO SCH (11:27)
[2019-10-21] MEDS: TAMSULOSIN HCL 0.4 MG CAP PO SCH ×2 (11:27→21:06)
--- NOTE | 2019-10-21 11:30 | NUR ---
MED PASS DONE PATIENT TOLERATED PO MED INTAKE WELL, ASKED QUESTION, MED TEACHING DONE, AT BEDSIDE. ACCU CHECK DONE = 173 MG/DL. PT SEEN AT BEDSIDE BY DR FAULKNER, ORDERS FOR 0.9 NS 500 ML BOLUS X1 FOR LOW BP- GIVEN. Pt CONTINUES TO CONFIRM ASYMPTOMATIC S/S OF HYPOTENSION, TOLERATED PO FLUID INTAKE BP IMPROVED AT NOON= 146/88, P81, RR18, PO2 98%. AT PRESENT PT RESTING QUIETLY W/ AT BEDSIDE.
[2019-10-21] MEDS: PRAMIPEXOLE DI-HCL 1 MG TABLET PO SCH ×3 (11:36→21:04)
[2019-10-21] MEDS: INSULIN REGULAR, HUMAN 100 UNITS/ML, 10 ML VIAL (humuLIN R) SUBCUT PRN ×2 (11:51→17:58)
[2019-10-21 12:00] VITALS: BP_SYST 146
[2019-10-21] MEDS: FINASTERIDE 5 MG TABLET (PROSCAR) PO SCH (12:40)
--- NOTE | 2019-10-21 14:30 | NUR ---
PATIENT TRANSFERRED FROM CHAIR TO BED, TOLERATED WELL, VOICES NO C/O PAIN OR DISCOMFORT.
[2019-10-21 17:29] VITALS: BP_SYST 133
--- NOTE | 2019-10-21 18:00 | NUR ---
MEDS GIVEN. PATIENT TOLERATED WELL VOICES NO C/O PAIN OR DISCOMFORT. BS DONE = 159MG/DL. ATE WELL FOR DINNER 90%, WATCHING TV AT PRESENT.
--- NOTE | 2019-10-21 19:35 | NUR ---
initial notes: pt is on bed, alert, awake, oriented x 4. no pain. no sob, stable vital sign. ivf infusing well. pt's at beside. explained to them plan of care tonight, they verbalized understanding. needs attended, call light in reach, safety on. side rails up. will monitor.
--- NOTE | 2019-10-21 19:40 | NUR ---
PATIENT ENDORSED TO AARON PEREZ, AAOX4.
[2019-10-21 20:34] VITALS: BP_SYST 134
[2019-10-21] MEDS: ATORVASTATIN 10 MG TABLET PO SCH (21:06)
--- NOTE | 2019-10-21 22:00 | NUR ---
awake alert, no acute distress. stable no pain. at bedside.call light in reach. will monitor.
--- NOTE | 2019-10-22 | NUR ---
sleeping, stable. wakes when blood sugar check. took all his midnight medication. needs attended, call light in reach. safety on, will monitor.
[2019-10-22] MEDS: CARBIDOPA/LEVODOPA 25/250 MG TABLET PO SCH ×9 (00:05→23:56)
[2019-10-22] MEDS: COMTAN 200 MG TAB PO SCH ×9 (00:05→23:56)
[2019-10-22] MEDS: INSULIN REGULAR, HUMAN 100 UNITS/ML, 10 ML VIAL (humuLIN R) SUBCUT PRN ×2 (00:13→12:10)
[2019-10-22 01:00] VITALS: BP_SYST 108
--- NOTE | 2019-10-22 02:21 | NUR ---
sleeping, comfortable. no distress, no sob.stable. ivf infusing well. safety on. call light in reach. will monitor.
--- NOTE | 2019-10-22 04:25 | NUR ---
sleeping, comfortable. no distress, no sob.stable. ivf infusing well. safety on. bed alarm on. call light in reach. will monitor.
--- NOTE | 2019-10-22 06:40 | NUR ---
pt is awake, alert. no pain. no sob. blood sugar 128, ivf infusing well. needs attended. bed alarm on. will monitor.
--- NOTE | 2019-10-22 07:25 | NUR ---
CLOSING: pt is awake, alert. no pain. no sob. , ivf infusing well. needs attended the whole shift. bed alarm on. bedside endorsement given to am rn..
--- NOTE | 2019-10-22 07:46 | NUR ---
initial notes- In bed, awake, alert and oriented. denies any chest pain or shortness of breath. still complain of numbness on his lower extremities, but stated that its lesser that before. IVF infusing well. Call light within reach. Enc. to call for help as needed. Will monitor.
[2019-10-22 07:49] VITALS: BP_SYST 97
[2019-10-22] MEDS: DILTIAZEM HCL 90 MG TABLET PO SCH ×2 (08:31→21:00)
[2019-10-22] MEDS: METOPROLOL TARTRATE 25 MG TABLET PO SCH ×2 (08:32→22:01)
[2019-10-22] MEDS: GLIMEPIRIDE 2 MG TABLET PO SCH ×2 (08:35→21:56)
[2019-10-22] MEDS: TAMSULOSIN HCL 0.4 MG CAP PO SCH ×2 (08:35→21:56)
[2019-10-22] MEDS: FINASTERIDE 5 MG TABLET (PROSCAR) PO SCH (08:35)
[2019-10-22] MEDS: metFORMIN HCL 500 MG TABLET PO SCH ×2 (08:35→17:50)
[2019-10-22] MEDS: GABAPENTIN 100 MG CAPSULE PO SCH ×3 (08:35→21:56)
[2019-10-22] MEDS: MULTIVITS,CA,MINERALS/IRON/FA 1 TABLET PO SCH (08:35)
[2019-10-22] MEDS: PRAMIPEXOLE DI-HCL 1 MG TABLET PO SCH ×3 (08:36→21:55)
--- NOTE | 2019-10-22 10:00 | NUR ---
notes- Assisted to bedside commode and voided. pt lower extremities is weak and pt still feel some numbness. denies any dizziness. No acute distress noted.
[2019-10-22 12:00] VITALS: BP_SYST 130
--- NOTE | 2019-10-22 13:04 | NUR ---
Notes- In bed, eating lunch. denies any pain or discomfort at this time. IVF infusing well. No acute distress noted.
[2019-10-22] MEDS: NACL 0.9% 1,000 ML IV SCH (14:23)
--- NOTE | 2019-10-22 14:56 | NUR ---
Notes- Resting in bed, family at bedside. Denies any pain or discomfort. IVF infusing well.
--- NOTE | 2019-10-22 16:26 | NUR ---
Notes- pt complains that he feels like he wanted to have bowel movement but unable to. Pt takes metamucil at home and wanted to take it here. Patient informed that we need to call the doctor for order.
[2019-10-22] MEDS ORDERED: PSYLLIUM HUSK 1 PKT PACKET PO ONE (16:30)
[2019-10-22 16:41] VITALS: BP_SYST 147
--- NOTE | 2019-10-22 18:37 | NUR ---
Notes- Sitting in the chair. pt stated that he is waiting for his to bring some food. IVF infusing well. Denies any pain or discomfort. No distress noted.
--- NOTE | 2019-10-22 19:20 | NUR ---
initial notes: pt is on bed, alert, awake, oriented x 4. no pain. no sob, stable vital sign. ivf infusing well. pt is waiting for his . explained to them plan of care tonight, they verbalized understanding. needs attended, call light in reach, safety on. side rails up. will monitor.
[2019-10-22 20:23] VITALS: BP_SYST 148
[2019-10-22] MEDS: PSYLLIUM HUSK 1 PKT PACKET PO SCH (21:56)
[2019-10-22] MEDS: ATORVASTATIN 10 MG TABLET PO SCH (21:56)
--- NOTE | 2019-10-22 22:00 | NUR ---
notes: pt is awake, alert. stable. not distress. at bedside. explained all his medication. verbalized understanding. needs attended. call light in reach. will monitor.
[2019-10-23] MEDS: INSULIN REGULAR, HUMAN 100 UNITS/ML, 10 ML VIAL (humuLIN R) SUBCUT PRN ×3 (00:01→23:49)
--- NOTE | 2019-10-23 00:30 | NUR ---
pt is awake, alert. stable. not pain. blood sugar 157, cover per sliding scale. after checking blood pressure, pt ask for his cardizem due high blood pressure reading. explain medication. pt understand. needs attended. call light in reach. safety on. will monitor.
[2019-10-23] MEDS: DILTIAZEM HCL 90 MG TABLET PO SCH ×2 (01:01→08:50)
[2019-10-23 01:07] VITALS: BP_SYST 155
--- NOTE | 2019-10-23 02:00 | NUR ---
sleeping, quietly. no sob, not distress. ivf infusing well. call light in reach. will monitor.
[2019-10-23] MEDS: COMTAN 200 MG TAB PO SCH ×8 (03:11→23:46)
[2019-10-23] MEDS: NACL 0.9% 1,000 ML IV SCH ×2 (03:11→20:56)
[2019-10-23] MEDS: CARBIDOPA/LEVODOPA 25/250 MG TABLET PO SCH ×8 (03:11→23:46)
--- NOTE | 2019-10-23 04:06 | NUR ---
sleeping, comfortable to his side. no sob, no sign of pain. stable. call light in reach. bed alarm on. will monitor.
--- NOTE | 2019-10-23 05:49 | NUR ---
assisted pt to bed side commode, no bm just gas and urinate. back to bed, stable. no pain. needs attended. call light in reach, bed alarm on. will monitor.
--- NOTE | 2019-10-23 07:20 | NUR ---
CLOSING: pt is awake, alert. no pain. no sob. , ivf infusing well. stable. needs attended the whole shift. bed alarm on. bedside endorsement given to am rn..
[2019-10-23 08:00] VITALS: BP_SYST 113
--- NOTE | 2019-10-23 08:00 | NUR ---
RN INITIAL NOTES ALERT AWAKE NO DISTRESS IVF INFUSING ORDERED , RESP EVEN AND UNLABORED , WILL CONT PLAN OF CARE
[2019-10-23] MEDS: PRAMIPEXOLE DI-HCL 1 MG TABLET PO SCH ×3 (08:43→21:20)
[2019-10-23] MEDS: GLIMEPIRIDE 2 MG TABLET PO SCH ×2 (08:44→21:21)
[2019-10-23] MEDS: FINASTERIDE 5 MG TABLET (PROSCAR) PO SCH (08:45)
[2019-10-23] MEDS: TAMSULOSIN HCL 0.4 MG CAP PO SCH ×2 (08:45→21:20)
[2019-10-23] MEDS: GABAPENTIN 100 MG CAPSULE PO SCH ×3 (08:45→21:21)
[2019-10-23] MEDS: metFORMIN HCL 500 MG TABLET PO SCH ×2 (08:45→18:14)
[2019-10-23] MEDS: MULTIVITS,CA,MINERALS/IRON/FA 1 TABLET PO SCH (08:46)
[2019-10-23] MEDS: METOPROLOL TARTRATE 25 MG TABLET PO SCH ×2 (08:47→21:21)
[2019-10-23] MEDS: PSYLLIUM HUSK 1 PKT PACKET PO SCH ×2 (08:48→21:20)
--- NOTE | 2019-10-23 10:00 | NUR ---
FLEET ENEMA PATIENT REQUESTED FOR FLEET ENEMA D/T 3 DAYS NO BM , DR NIÑO ORDERED FLEET ENEMA, PATIENT MADE AWARE
[2019-10-23] MEDS: SODIUM PHOSPHATE,MONO-DIBASIC 133 ML ENEMA RC ONE ×2 (11:03→11:13)
[2019-10-23] MEDS ORDERED: MILK OF MAGNESIA 30 ML UDC PO PRN (11:15)
--- NOTE | 2019-10-23 12:34 | NUR ---
BM PATIENT HAD A GOOD BM AFTER FLEET ENEMA
[2019-10-23 13:11] VITALS: BP_SYST 123
--- NOTE | 2019-10-23 13:57 | NUR ---
Case mgt: Rec'd dc planning orders for HH and PT--PT eval was ordered 10/22/19 but not completed yet. (Today is Thursday)--I s/w pt and his Dee at bedside and discussed dc plan orders and noted that PT eval is pending. I explained the pt has choice of vendor and also explained the Medicare IM letter re: right to appeal discharge (no discharge order yet). Pt and his are agreeable to me faxing referral to [facility]--referral faxed to [facility]--#[phone]--fax#[phone]--Devon at [facility] will wait for faxed referral--MATY PEREZ Addendum: 10/23/19 at 1412 by Fabiana Gregory RN Rec'd call from [facility]--she accepted pt on service--PT eval pending
--- NOTE | 2019-10-23 16:00 | NUR ---
ROUNDS PATIENT SITTING IN THE CHAIR WATCHING HIS SHOW IN THE TABLET
[2019-10-23 16:32] LABS: BASOPHILS % (AUTO) 0.2 % (0.0-2.0); EOSINOPHILS # (AUTO) 0.1 K/uL (0.0-0.4); EOSINOPHILS % (AUTO) 1.3 % (0.0-4.0); HEMATOCRIT 33.9 % (36-54); HEMOGLOBIN 11.4 g/dL (14.0-18.0); LYMPHOCYTES # (AUTO) 1.7 K/uL (1.0-5.5); LYMPHOCYTES % (AUTO) 21.6 % (20.5-51.5); MEAN CORPUSCULAR HEMOGLOBIN 30 pg (27-31); MEAN CORPUSCULAR HGB CONC 34 % (32-36); MEAN CORPUSCULAR VOLUME 91 fL (79.0-98.0); MONOCYTES # (AUTO) 0.3 K/uL (0.0-1.0); MONOCYTES % (AUTO) 4.4 % (1.7-9.3); NEUTROPHILS # (AUTO) 5.6 K/uL (1.8-7.7); NEUTROPHILS % (AUTO) 72.5 % (40.0-70.0); PLATELET COUNT (AUTO) 333 K/uL (130-430); RED BLOOD CELL COUNT(AUTO) 3.75 MIL/uL (4.2-6.2); RED CELL DISTRIBUTION WIDTH 13.6 % (9.0-15.0); WHITE BLOOD COUNT (AUTO) 7.7 K/uL (4.8-10.8)
[2019-10-23 16:42] VITALS: BP_SYST 156
[2019-10-23 17:28] LABS: ANION GAP 5 (5-15); CALCIUM 8.6 mg/dL (8.4-11.0); CHLORIDE 93 mmol/L (98-107); GLUCOSE 122 mg/dL (70-99); POTASSIUM 5.3 mmol/L (3.5-5.1); SODIUM SERUM 124 mmol/L (136-145); UREA NITROGEN, BLOOD 13 mg/dL (8-21)
--- NOTE | 2019-10-23 19:20 | NUR ---
initial notes: pt is sitting on bedside chair, alert, awake, oriented x 4. no pain. no sob, stable vital sign. ivf infusing well. pt's at side. educate about plan of care tonight,medication. they verbalized understanding. needs attended, call light in reach, safety on. side rails up. will monitor.
--- NOTE | 2019-10-23 19:30 | NUR ---
ENDORSEMENT WILL ENDORSE TO NEXT SHIFT CONT CARE , PATIENT HAS A DC PLANNING IN AM , NO COMPLAIN OF PAIN , COOPERATES WITH CARE , ENDORSED TO NEXT SHIFT IN STABLE CONDITION
[2019-10-23 19:32] VITALS: BP_SYST 119
[2019-10-23] MEDS: ATORVASTATIN 10 MG TABLET PO SCH (21:21)
--- NOTE | 2019-10-23 22:00 | NUR ---
on bed, awake, alert, no pain. stable, no berating problem.call light with the pt.
--- NOTE | 2019-10-24 | NUR ---
blood sugar 159, cover per sliding scale. take all his miodnight medication. stable. needs attended, call light in reach. low bed position. alarm be. side rails up.
[2019-10-24 00:25] VITALS: BP_SYST 145
--- NOTE | 2019-10-24 02:10 | NUR ---
sleeping, comfortable. no sob. stable. side rail up. lock bed and low position. bed alarmon.call light is with he pt.
--- NOTE | 2019-10-24 02:12 | NUR ---
on awake, alert. no pain,not distress.stable. call light with the pt. Addendum: 10/24/19 at 0250 by Isai Hays RN enter wrong time.
[2019-10-24] MEDS: CARBIDOPA/LEVODOPA 25/250 MG TABLET PO SCH ×8 (02:54→20:20)
[2019-10-24] MEDS: COMTAN 200 MG TAB PO SCH ×7 (02:54→20:20)
--- NOTE | 2019-10-24 04:17 | NUR ---
sleeping, comfortable to his side. no sob, no sign of pain. stable. call light in reach. bed alarm on. will monitor.
--- NOTE | 2019-10-24 06:20 | NUR ---
pt is assisted to bedside chair. stable. no pain, no dizziness. blood sugar-57, d50 given blood sugar is 137, needs attended. call light in reach. pt still want to stay sitting in chair.
--- NOTE | 2019-10-24 07:20 | NUR ---
closing: pt is sitting on bedside chair. eating his breakfast, stable. no pain. ivf infusing well. needs attended the whole shift. bedside report given to am rn.
--- NOTE | 2019-10-24 07:27 | NUR ---
OPENING NOTE: RECEIVED BEDSIDE SBAR FROM NIGHTTIME RN, PATIENT SITTING IN CHAIR EATING BREAKFAST, RESPIRATION EVEN NON LABORED, NO ACUTE DISTRESS NOTED, EDUCATED PATIENT REGARDING USING CALL LIGHT AND TO CALL FOR ASSISTANCE, CALL LIGHT WITHIN REACH, BED IN LOW AND LOCKED POSITION,
[2019-10-24 07:44] LABS: BASOPHILS % (AUTO) 0.3 % (0.0-2.0); EOSINOPHILS # (AUTO) 0.1 K/uL (0.0-0.4); EOSINOPHILS % (AUTO) 1.9 % (0.0-4.0); HEMATOCRIT 33.7 % (36-54); HEMOGLOBIN 11.2 g/dL (14.0-18.0); LYMPHOCYTES # (AUTO) 1.5 K/uL (1.0-5.5); LYMPHOCYTES % (AUTO) 26.2 % (20.5-51.5); MEAN CORPUSCULAR HEMOGLOBIN 30 pg (27-31); MEAN CORPUSCULAR HGB CONC 33 % (32-36); MEAN CORPUSCULAR VOLUME 91 fL (79.0-98.0); MONOCYTES # (AUTO) 0.3 K/uL (0.0-1.0); MONOCYTES % (AUTO) 5.5 % (1.7-9.3); NEUTROPHILS # (AUTO) 3.7 K/uL (1.8-7.7); NEUTROPHILS % (AUTO) 66.1 % (40.0-70.0); PLATELET COUNT (AUTO) 328 K/uL (130-430); RED BLOOD CELL COUNT(AUTO) 3.71 MIL/uL (4.2-6.2); RED CELL DISTRIBUTION WIDTH 13.8 % (9.0-15.0); WHITE BLOOD COUNT (AUTO) 5.6 K/uL (4.8-10.8)
[2019-10-24 08:00] VITALS: BP_SYST 115
[2019-10-24 08:04] LABS: ANION GAP 5 (5-15); CALCIUM 8.6 mg/dL (8.4-11.0); CHLORIDE 91 mmol/L (98-107); GLUCOSE 117 mg/dL (70-99); POTASSIUM 3.9 mmol/L (3.5-5.1); SODIUM SERUM 120 mmol/L (136-145); UREA NITROGEN, BLOOD 11 mg/dL (8-21)
[2019-10-24] MEDS: PSYLLIUM HUSK 1 PKT PACKET PO SCH ×2 (08:41→20:20)
[2019-10-24] MEDS: GLIMEPIRIDE 2 MG TABLET PO SCH (08:42)
[2019-10-24] MEDS: MULTIVITS,CA,MINERALS/IRON/FA 1 TABLET PO SCH (08:43)
[2019-10-24] MEDS: FINASTERIDE 5 MG TABLET (PROSCAR) PO SCH (08:43)
[2019-10-24] MEDS: TAMSULOSIN HCL 0.4 MG CAP PO SCH ×2 (08:43→20:19)
[2019-10-24] MEDS: metFORMIN HCL 500 MG TABLET PO SCH ×2 (08:44→17:42)
[2019-10-24] MEDS: GABAPENTIN 100 MG CAPSULE PO SCH ×3 (08:44→20:19)
[2019-10-24] MEDS: METOPROLOL TARTRATE 25 MG TABLET PO SCH ×2 (08:45→20:20)
[2019-10-24] MEDS: PRAMIPEXOLE DI-HCL 1 MG TABLET PO SCH ×3 (08:48→20:20)
[2019-10-24] MEDS: NACL 0.9% 1,000 ML IV SCH (09:10)
--- NOTE | 2019-10-24 09:36 | NUR ---
PHYSICIAN ROUNDS DR. FAULKNER AT BEDSIDE EXAMINING PATIENT.
--- NOTE | 2019-10-24 10:09 | NUR ---
physician rounds DR. CASTILLO BEDSIDE EXAMINING PATIENT, INFORMED PHYSICIAN REGARDING PATIENTS URINE DARK RED TINGED, INFORMED HIM THAT ORDERS FOR LANTUS DO NOT SPECIFY TIMES TO ADMINISTER, INFORMED HIM THAT PATIENTS MORNING BLOOD SUGAR WAS 57,PER PHYSICIAN HE WILL ENTER ORDERS.
[2019-10-24 12:42] VITALS: BP_SYST 139
--- NOTE | 2019-10-24 12:44 | NUR ---
PHYSICAL THERAPY PATIENT LEFT THE ROOM WITH PHYSICAL THERAPY IN WHEEL CHAIR, ACCOMPANIED PATIENT,
--- NOTE | 2019-10-24 12:50 | NUR ---
PHYSICAL THERAPY RETURNED FROM PHYSICAL THERAPY, PATIENT SITTING UP IN BED EATING LUNCH, AT BEDSIDE,
[2019-10-24] MEDS: INSULIN REGULAR, HUMAN 100 UNITS/ML, 10 ML VIAL (humuLIN R) SUBCUT PRN (13:02)
--- NOTE | 2019-10-24 13:40 | NUR ---
Dietitian Recommendations *Continue [facility] diet. Please see Nutritional Assessment for details. RITA, RD
--- NOTE | 2019-10-24 14:21 | NUR ---
NURSE NOTES RETURNED PATIENT TO BED, RESTING IN BED, RESPIRATIONS EVEN, NON LABORED, CALL LIGHT WITH IN REACH, BED LOCKED AND IN LOW POSITION
--- NOTE | 2019-10-24 15:39 | NUR ---
MRI REQUEST PER DR. CASTILLO, REQUEST MRI RESULTS FROM [facility], HAD PATIENT SIGN RELEASE OF RECORDS FORM AND FAXED TO [facility]
[2019-10-24 16:21] VITALS: BP_SYST 150
--- NOTE | 2019-10-24 16:30 | NUR ---
BED BATH PATIENT REQUESTED BED BATH, BED BATH PROVIDED, PATIENT TOLERATED WELL, SUPPLIED PATIENT WITH ORAL CARE SUPPLIES, PATIENT USED APPROPRIATELY,
--- NOTE | 2019-10-24 16:35 | NUR ---
DC PLANNING: The pt. is accepted at [facility] room 22A, RN to report # [phone]. CM informed pt' s spouse Dee who agreed with dr. Waterman's snf recommendation ; [facility]. She aware that the pt is possible transfer today if cleared by/has dc order from dr. Waterman. -- US Breanne for [facility] made aware to arrange any ambulance/accepting Medicare insurance for the transfer.
--- NOTE | 2019-10-24 16:42 | NUR ---
Discharge Planning: DCP faxed pt referral to [facility] (f [phone] p [phone]) DCP to follow up
--- NOTE | 2019-10-24 17:03 | NUR ---
DISCHARGE PLANS INFORMED PATIENT THAT HE HAS BEEN ACCEPTED TO [facility], PATIENT STATES WOULD LIKE TO DISCUSS WITH SON AND , PER PATIENT SON AND ARE ON THE WAY, IF PATIENT IS AGREEABLE WE WILL ARRANGE TRANSFER VIA AMBULANCE
--- NOTE | 2019-10-24 18:56 | NUR ---
discharge planning patient son AJ at bedside, patient agreeable to [facility], attempted to arrange transport with [facility], they state they do not accept patients insurance, will continue to call additional transport companies.
--- NOTE | 2019-10-24 19:09 | NUR ---
[facility] WILL BE [facility] GOING TO [facility].
--- NOTE | 2019-10-24 19:10 | NUR ---
OPENING NOTES RECEIVE REPORT FROM MORNING SHIFT NURSE. PATIENT AOX4. FAMILY AT BEDSIDE. PATIENT FOR DISCHARGE. NO SIGNS OF RESPIRATORY DISTRESS AND DISCOMFORT NOTED. DENIES PAIN AND DISCOMFORT AT THIS TIME. SAFETY PRECAUTIONS IN PLACE. IV SITE NOTED. SAFETY PRECAUTIONS IN PLACE. BED LOCKED AND IN LOWEST POSITION. WILL CONTINUE TO MONITOR PATIENT
--- NOTE | 2019-10-24 19:17 | NUR ---
closing note: BEDSIDE SBAR GIVEN TO NIGHT RNWING,PATIENT RESTING IN BED, PATIENT AND PATIENTS FAMILY AWARE OF 2100 PICKUP TIME, CALL LIGHT WITH IN REACH, BED IN LOW AND LOCKED POSITION, BED ALARM ON.
[2019-10-24 20:00] VITALS: BP_SYST 158
[2019-10-24] MEDS: ATORVASTATIN 10 MG TABLET PO SCH (20:20)
--- NOTE | 2019-10-24 20:20 | NUR ---
MED PASS DUE MEDICATION GIVEN AT THIS TIME. PATIENT EDUCATED ON PURPOSE, SIDE EFFECTS OF MEDICATIONS THAT IS GIVEN. PATIENT VERBALIZED UNDERSTANDING. NO SIGNS OF RESPIRATORY DISTRESS AND DISCOMFORT NOTED. DENIES PAIN AND DISCOMFORT AT THIS TIME. SAFETY PRECAUTIONS IN PLACE. AT BED SIDE. WILL CONTINUE TO MONITOR PATIENT.
[2019-10-24 20:23] VITALS: BP_SYST 158
--- NOTE | 2019-10-24 21:31 | NUR ---
REPORT GIVEN TO ANA HILTON OF [facility] AND [facility] OF [facility].
--- NOTE | 2019-10-24 21:43 | NUR ---
DISCHARGE PATIENT VITAL SIGNS TAKEN AND RECORDED. VITALS WITHIN NORMAL LIMITS, PATIENT HAS NO SIGNS OF RESPIRATORY DISTRESS AND DISCOMFORT NOTED. BREATHING EVEN AND UNLABORED. SAFETY PRECAUTIONS IN PLACE. IV CATHETER REMOVED AND CATHETER INTACT. PATIENT TOLERATED WELL. TELEMONITOR REMOVED. PATIENT SAFELY DISCHARGE VIA [facility].
== END 2019-10-24 21:40 | DRG 315 ==
LOC: SED 12:11 → STU 15:02
PROVIDERS: ADMIT Internal Medicine Hospice and Palliative Medicine; ATTEND Internal Medicine Hospice and Palliative Medicine
DX: I95.9 Hypotension, unspecified (principal); E87.1 Hypo-osmolality and hyponatremia; E44.1 Mild protein-calorie malnutrition; E11.9 Type 2 diabetes mellitus without complications; G89.29 Other chronic pain; I10 Essential (primary) hypertension; E78.5 Hyperlipidemia, unspecified; N40.0 Benign prostatic hyperplasia without lower urinary tract symptoms; M54.16 Radiculopathy, lumbar region; E11.40 Type 2 diabetes mellitus with diabetic neuropathy, unspecified; E78.00 Pure hypercholesterolemia, unspecified; G20 Parkinson's disease; T50.2X5A Adverse effect of carbonic-anhydrase inhibitors, benzothiadiazides and other diuretics, initial encounter; D64.9 Anemia, unspecified; Y92.89 Other specified places as the place of occurrence of the external cause; Z88.8 Allergy status to other drugs, medicaments and biological substances; Z79.899 Other long term (current) drug therapy; Z79.84 Long term (current) use of oral hypoglycemic drugs; Z79.4 Long term (current) use of insulin; Z68.25 Body mass index [BMI] 25.0-25.9, adult
CPT/HCPCS: 36415; 71045; 80048; 80053; 80061; 81003; 82533; 82550-TC; 82607; 82962; 83036; 83880; 84443-TC; 84484; 85025; 85044-TC; 87040-TC; 87086; 93005; 93306; 96360; 99285; G0378; J1815; J7030; J7040

== ENCOUNTER 2020-07-01 17:33 | Emergency (ER) | payer OTHER, MEDICARE ==
[~2020-07-01] VITALS: Ht 157.5 cm; Wt 68.0 kg
[~2020-07-01 17:33] MED LIST changes: -CYAN100T3 PO; +CYAN100T44 PO
[2020-07-01 17:38] VITALS: BP_SYST 137
--- NOTE | 2020-07-01 17:42 | NUR ---
placed in bed 8
--- NOTE | 2020-07-01 17:49 | NUR ---
Pt came to ER for R eye redness and burning after procedure this morning. Pt resting in [facility] comfortably, no distress, to [place] Addendum: 07/01/20 at 1753 by [email or web address] Pt came to ER for R eye redness and burning after procedure on R eye x2 weeks ago and L eye x1 week ago. Pt resting in [facility] comfortably, no distress, to [place]
--- NOTE | 2020-07-01 17:52 | NUR ---
ER at bedside examining patient.
[2020-07-01 18:35] VITALS: BP_SYST 137
--- NOTE | 2020-07-01 18:36 | NUR ---
Patient given written and verbal discharge instructions and verbalizes understanding. ER MD discussed with patient the results and treatment provided. Patient in stable condition. ID arm band removed. Rx of Ocuflox Solution given. Patient educated on pain management and to follow up with PMD. Pain Scale 0/10. Opportunity for questions provided and answered. Medication side effect fact sheet provided.
== END 2020-07-01 18:36 | disposition home or self-care (01) ==
LOC: SED 17:33
DX: H10.9 Unspecified conjunctivitis (principal); I10 Essential (primary) hypertension; E11.9 Type 2 diabetes mellitus without complications; E78.00 Pure hypercholesterolemia, unspecified; Z88.8 Allergy status to other drugs, medicaments and biological substances; Z79.899 Other long term (current) drug therapy; Z79.4 Long term (current) use of insulin
CPT/HCPCS: 99283

== ENCOUNTER 2021-02-06 11:11 | Emergency (ER) | payer OTHER, MEDICARE, SELFPAY ==
[~2021-02-06] VITALS: Ht 170.2 cm; Wt 70.3 kg
[2021-02-06 11:11] VITALS: BP_SYST 140
[2021-02-06] MEDS ORDERED: NEU300 PO ×3 (11:27)
[2021-02-06] MEDS ORDERED: SODI1TAB3 PO (11:27)
[2021-02-06] MEDS ORDERED: APIX5TAB PO ×2 (11:27)
[2021-02-06] MEDS ORDERED: METF-1069 PO (11:27)
[2021-02-06] MEDS ORDERED: LOSA100T3 PO (11:27)
[2021-02-06] MEDS ORDERED: SENN-295 PO (11:27)
[2021-02-06] MEDS ORDERED: CARB1TAB21 PO (11:27)
[2021-02-06] MEDS ORDERED: TRIPHALA PO (11:27)
[2021-02-06] MEDS ORDERED: SENN8.6T19 PO (11:27)
[2021-02-06] MEDS ORDERED: META800T85 PO (11:27)
[2021-02-06] MEDS ORDERED: ONDANSETRON HCL 4 MG/2 ML VIAL IVP ONE (11:30)
[2021-02-06] MEDS ORDERED: MORPHINE 4 MG INJ. 4 MG/ML VIAL IVP ONE (11:30)
[2021-02-06 11:40] LABS: BASOPHILS % (AUTO) 0.3 % (0.0-2.0); EOSINOPHILS # (AUTO) 0.1 K/uL (0.0-0.4); HEMATOCRIT 37.1 % (36-54); HEMOGLOBIN 12.5 g/dL (14.0-18.0); LYMPHOCYTES # (AUTO) 1.3 K/uL (1.0-5.5); LYMPHOCYTES % (AUTO) 23.1 % (20.5-51.5); MEAN CORPUSCULAR HEMOGLOBIN 31 pg (27-31); MEAN CORPUSCULAR HGB CONC 34 % (32-36); MEAN CORPUSCULAR VOLUME 90 fL (79.0-98.0); MONOCYTES # (AUTO) 0.3 K/uL (0.0-1.0); MONOCYTES % (AUTO) 5.9 % (1.7-9.3); NEUTROPHILS % (AUTO) 69.7 % (40.0-70.0); PLATELET COUNT (AUTO) 276 K/uL (130-430); RED CELL DISTRIBUTION WIDTH 15.2 % (9.0-15.0); WHITE BLOOD COUNT (AUTO) 5.8 K/uL (4.8-10.8)
[2021-02-06 11:54] LABS: ANION GAP 4 (5-15); CALCIUM 8.4 mg/dL (8.4-11.0); CHLORIDE 102 mmol/L (98-107); CREATININE 0.86 mg/dL (0.55-1.30); GLUCOSE 146 mg/dL (70-99); POTASSIUM 4.6 mmol/L (3.5-5.1); SODIUM SERUM 134 mmol/L (136-145); UREA NITROGEN, BLOOD 21 mg/dL (8-21)
[2021-02-06 12:00] LABS: ALANINE AMINOTRANSFERASE 13 U/L (12-78); ALBUMIN 3.2 g/dL (3.4-4.8); ASPARTATE AMINOTRANSFERASE 14 U/L (10-37); TOTAL BILIRUBIN 0.3 mg/dL (0.0-1.0)
[2021-02-06] MEDS ORDERED: KETAMINE 30 MG/3 ML SYRINGE IVP ONE (12:30)
[2021-02-06] MEDS ORDERED: MORPHINE 2 MG/ML INJ. SYRINGE IVP ONE (12:30)
[2021-02-06] MEDS ORDERED: HYDR-3927 PO (12:42)
[2021-02-06 13:04] VITALS: BP_SYST 147
== END 2021-02-06 13:02 | disposition home or self-care (01) ==
LOC: SED 11:11
DX: G62.9 Polyneuropathy, unspecified (principal); I10 Essential (primary) hypertension; E11.9 Type 2 diabetes mellitus without complications; E78.00 Pure hypercholesterolemia, unspecified; Z88.8 Allergy status to other drugs, medicaments and biological substances; Z79.899 Other long term (current) drug therapy; Z20.822 Contact with and (suspected) exposure to COVID-19
CPT/HCPCS: 36415; 71045; 80053; 83880; 84484; 85025; 87426; 93005; 93970; 96374; 96375; 96376; 99285; J2270 ×2; J2405

== ENCOUNTER 2021-08-01 01:09 | Emergency (ER) | payer OTHER, MEDICARE, SELFPAY ==
[~2021-08-01] VITALS: Ht 167.6 cm; Wt 70.3 kg
[~2021-08-01 01:09] MED LIST changes: -ACET-2634 PO; +APIX5TAB PO; -CARB-62 PO; +CARB1TAB21 PO; -COM200 PO; -CYAN100T44 PO; -DILT120C89 PO; -FINA5TAB3 PO; -GABA-529 PO; -GLIM4TAB PO; -GLUC100017 PO; +HYDR-3927 PO; -IBUP-2604 PO; -INSU100V9 SUBCUT; -IRBE1TAB PO; -KRIL1CAP22 PO; +LOSA100T3 PO; +META800T85 PO; +METF-1069 PO; -METF1000 PO; -METO25TA3 PO; -MIRA50TA PO; -MULT-1164 PO; +NEU300 PO; -PRAM1TAB5 PO; -PRAV40TA PO; +SENN-295 PO; +SENN8.6T19 PO; +SODI1TAB3 PO; -TAMS0.4C96 PO; +TRIPHALA PO
[2021-08-01 01:12] VITALS: BP_SYST 163
--- NOTE | 2021-08-01 01:12 | NUR ---
Patient to ER bed 8 to gown for evaluation. Side rails up.
--- NOTE | 2021-08-01 01:12 | NUR ---
ER Dr. Jennings at bedside examining patient.
--- NOTE | 2021-08-01 01:14 | NUR ---
Patient BIB by BLS/EMS from home. C/O lower back pain x today. Patient reported, had lower back pain this evening (07/31/21) and constipation since Thursday, Used stool softener , no relief. A/O,X4, lower back pain, LLQ abdominal pain, pain rate 10/10, place patient on monitoring engineer and pulse ox.
[2021-08-01] MEDS ORDERED: NACL 0.9% 1,000 ML IV ONE (01:30)
[2021-08-01] MEDS ORDERED: DIPHENHYDRAMINE INJ 50 MG/ML VIAL IVP ONE (01:30)
[2021-08-01] MEDS ORDERED: MORPHINE 4 MG INJ. 4 MG/ML VIAL IVP ONE (01:30)
--- NOTE | 2021-08-01 01:45 | NUR ---
# 20 gauge angiocath placed to RFA. Use of asceptic technique. Opsite placed over site. Blood return noted. Blood for lab drawn from site. Flushed with 10 cc of normal saline. No evidence of infiltration noted. Patient tolerated well.
--- NOTE | 2021-08-01 01:57 | NUR ---
X-ray at bedside.
[2021-08-01] MEDS ORDERED: TAMS-11 PO (02:03)
--- NOTE | 2021-08-01 02:03 | NUR ---
Medication reconciliation completed with information provided by patient's medication list. Any prior medication reconciliation on file was reviewed and corrected.
[2021-08-01 02:29] LABS: ANION GAP 6 (5-15); CALCIUM 9.4 mg/dL (8.4-11.0); CHLORIDE 96 mmol/L (98-107); CREATININE 0.88 mg/dL (0.55-1.30); GLUCOSE 189 mg/dL (70-99); SODIUM SERUM 131 mmol/L (136-145); UREA NITROGEN, BLOOD 21 mg/dL (8-21)
[2021-08-01 02:35] LABS: ALANINE AMINOTRANSFERASE 15 U/L (12-78); ALBUMIN 3.8 g/dL (3.4-4.8); ASPARTATE AMINOTRANSFERASE 19 U/L (10-37); TOTAL BILIRUBIN 0.3 mg/dL (0.0-1.0)
[2021-08-01 02:39] LABS: BASOPHILS % (AUTO) 0.2 % (0.0-2.0); EOSINOPHILS % (AUTO) 0.2 % (0.0-4.0); HEMATOCRIT 39.8 % (36-54); HEMOGLOBIN 13.3 g/dL (14.0-18.0); LYMPHOCYTES # (AUTO) 0.8 K/uL (1.0-5.5); LYMPHOCYTES % (AUTO) 8.6 % (20.5-51.5); MEAN CORPUSCULAR HEMOGLOBIN 31 pg (27-31); MEAN CORPUSCULAR HGB CONC 33 % (32-36); MEAN CORPUSCULAR VOLUME 92 fL (79.0-98.0); MONOCYTES # (AUTO) 0.2 K/uL (0.0-1.0); MONOCYTES % (AUTO) 2.6 % (1.7-9.3); NEUTROPHILS # (AUTO) 8.2 K/uL (1.8-7.7); NEUTROPHILS % (AUTO) 88.4 % (40.0-70.0); PLATELET COUNT (AUTO) 351 K/uL (130-430); RED BLOOD CELL COUNT(AUTO) 4.34 MIL/uL (4.2-6.2); RED CELL DISTRIBUTION WIDTH 13.5 % (9.0-15.0); WHITE BLOOD COUNT (AUTO) 9.2 K/uL (4.8-10.8)
[2021-08-01 03:36] LABS: BILIRUBIN,URINE NEGATIVE (NEGATIVE); BLOOD, URINE NEGATIVE (NEGATIVE); CLARITY/URINE CLEAR (CLEAR); COLOR,URINE YELLOW (YELLOW); GLUCOSE,URINE NEGATIVE (NEGATIVE); KETONES,URINE NEGATIVE (NEGATIVE); LEUKOCYTE ESTERASE ,URINE NEGATIVE (NEGATIVE); NITRITE, URINE NEGATIVE (NEGATIVE); PROTEIN URINE 2+ (NEGATIVE); UROBILINOGEN,URINE 0.2 (0.2-1.0)
[2021-08-01 03:55] LABS: BACTERIA,URINE RARE /HPF (None Seen); RBC,URINE 0-3 /HPF (0-3); WBC,URINE 0-3 /HPF (0-3)
[2021-08-01 03:56] LABS: MUCUS,URINE None Seen /LPF (None Seen)
--- NOTE | 2021-08-01 04:06 | NUR ---
Given Soap Suds Enema as Verbal order by Dr. Jennings.
--- NOTE | 2021-08-01 04:32 | NUR ---
Patient had bowel movement, patient relief in pain.
[2021-08-01 05:32] VITALS: BP_SYST 148
--- NOTE | 2021-08-01 05:32 | NUR ---
Patient D/C via BLS/EMS.
== END 2021-08-01 05:32 | disposition home or self-care (01) ==
LOC: SED 01:09
DX: K59.00 Constipation, unspecified (principal); M54.50 Low back pain, unspecified; I10 Essential (primary) hypertension; E11.9 Type 2 diabetes mellitus without complications; Z79.899 Other long term (current) drug therapy; Z88.8 Allergy status to other drugs, medicaments and biological substances
CPT/HCPCS: 36415; 74021; 74176; 76376; 80053; 81000; 85025; 93005; 96361; 96374; 96375; 99285; J1200; J2270; J7030

== ENCOUNTER 2021-08-04 11:12 | Inpatient (IN) | payer OTHER, MEDICARE, SELFPAY ==
[~2021-08-04] VITALS: Ht 170.2 cm; Wt 71.7 kg
[2021-08-04 11:12] VITALS: BP_SYST 67
[~2021-08-04 11:12] MED LIST changes: -APIX5TAB PO; -SODI1TAB3 PO; +TAMS-11 PO; -TRIPHALA PO
--- NOTE | 2021-08-04 11:12 | NUR ---
Pt to bed 8 for evaluation. Pt gowned and attached to patient monitor.
--- NOTE | 2021-08-04 11:15 | NUR ---
Pt BIB ambulance squad 64 for near syncope. Pt is bed bound and was found slumped over in chair. Pt did not lose consciousness but was extremely weak. Pt BP in field was 66/48 and BS was (230). An IV was established in field in left arm 18g IV HL. Pt was started on a 250cc bolus in route. Pt has h/o diabetes, high cholesterol, hypertension, and Parkinsons. Pt denies pain and skins are dry and intact. Pt is alert and oriented but forgetful.
--- NOTE | 2021-08-04 11:18 | NUR ---
EKG done at bedside.
--- NOTE | 2021-08-04 11:20 | NUR ---
Covid swab obtained and sent to lab for analysis.
--- NOTE | 2021-08-04 11:21 | NUR ---
BS (184) on arrival to ED.
--- NOTE | 2021-08-04 11:25 | NUR ---
# 20 gauge angiocath placed to right hand. Use of asceptic technique. Opsite placed over site. Blood return noted. Blood for lab drawn from site. Flushed with 10 cc of normal saline. No evidence of infiltration noted. Patient tolerated well.
--- NOTE | 2021-08-04 11:30 | NUR ---
Pt V/S improved following 250ml bolus of NS. 106/60, 77, 24, and Spo2 98%.
--- NOTE | 2021-08-04 11:47 | NUR ---
Dr. Freeman at bedside to assess.
--- NOTE | 2021-08-04 12:12 | NUR ---
portable chest xray done at bedside.
[2021-08-04 12:26] LABS: ANION GAP 8 (5-15); CALCIUM 8.4 mg/dL (8.4-11.0); CHLORIDE 100 mmol/L (98-107); CREATININE 1.02 mg/dL (0.55-1.30); GLUCOSE 177 mg/dL (70-99); POTASSIUM 4.9 mmol/L (3.5-5.1); SODIUM SERUM 133 mmol/L (136-145); UREA NITROGEN, BLOOD 18 mg/dL (8-21)
[2021-08-04 12:32] LABS: BASOPHILS % (AUTO) 0.4 % (0.0-2.0); EOSINOPHILS # (AUTO) 0.1 K/uL (0.0-0.4); EOSINOPHILS % (AUTO) 1.8 % (0.0-4.0); HEMATOCRIT 36.8 % (36-54); HEMOGLOBIN 12.3 g/dL (14.0-18.0); LYMPHOCYTES % (AUTO) 31.4 % (20.5-51.5); MEAN CORPUSCULAR HEMOGLOBIN 31 pg (27-31); MEAN CORPUSCULAR HGB CONC 33 % (32-36); MEAN CORPUSCULAR VOLUME 92 fL (79.0-98.0); MONOCYTES # (AUTO) 0.2 K/uL (0.0-1.0); MONOCYTES % (AUTO) 6.5 % (1.7-9.3); NEUTROPHILS % (AUTO) 59.9 % (40.0-70.0); PLATELET COUNT (AUTO) 294 K/uL (130-430); RED CELL DISTRIBUTION WIDTH 13.4 % (9.0-15.0); WHITE BLOOD COUNT (AUTO) 3.3 K/uL (4.8-10.8)
[2021-08-04 12:35] LABS: ALANINE AMINOTRANSFERASE 20 U/L (12-78); ALBUMIN 3.3 g/dL (3.4-4.8); ASPARTATE AMINOTRANSFERASE 27 U/L (10-37); TOTAL BILIRUBIN 0.2 mg/dL (0.0-1.0)
--- NOTE | 2021-08-04 12:42 | NUR ---
Pt is currently resting quietly in no distress.
[2021-08-04] MEDS ORDERED: POTASSIUM CHLORIDE 20 MEQ in NACL 0.9% 1,000 ML IV SCH ×2 (14:15→14:30)
--- NOTE | 2021-08-04 14:15 | NUR ---
ADMIT ORDERS RECEIVED AND TELE BED ORDERED.
[2021-08-04] MEDS ORDERED: INSULIN LISPRO SLIDING SCALE 100 UNITS/ML VIAL (humaLOG) SUBCUT PRN (14:30)
[2021-08-04] MEDS ORDERED: ENTA200T2 PO (14:43)
[2021-08-04] MEDS ORDERED: PRAM1TAB4 PO (14:43)
[2021-08-04] MEDS ORDERED: GLIM4TAB PO (14:43)
[2021-08-04] MEDS ORDERED: CARB1TAB21 PO (14:43)
[2021-08-04] MEDS ORDERED: IRBE150T48 PO (14:43)
[2021-08-04] MEDS ORDERED: DILT180C67 PO (14:43)
[2021-08-04] MEDS ORDERED: FINA5TAB3 PO (14:43)
[2021-08-04] MEDS ORDERED: PRAV40TA63 PO (14:43)
--- NOTE | 2021-08-04 15:16 | NUR ---
Patient will be admitted to care of Dr. Allen. Admitted to tele unit. Will go to room 118. Belongings list completed. Complete and up to date summary report printed. SBAR report to be given at bedside with opportunity for questions.
--- NOTE | 2021-08-04 15:55 | NUR ---
Admission Note Received patient from ER with diagnosis of Hypotension. Initial Plan of Care discussed-patient verbalized his understanding. Oriented to room, call light, pain management and safety.
[2021-08-04 16:30] VITALS: BP_SYST 152
[2021-08-04] MEDS ORDERED: HYDROcodone/ACETAMIN 5-325 MG TAB (NORCO/ VICODIN) PO PRN (19:00)
[2021-08-04] MEDS ORDERED: HYDROcodone/ACETAMIN 5-325 MG TAB (NORCO/ VICODIN) ONE (19:05)
--- NOTE | 2021-08-04 19:30 | NUR ---
CHANGE OF SHIFT; endorsed by day shift, admitted today for near syncope/hypotension. on fall risk, bed alarm on. call light within reach.
--- NOTE | 2021-08-04 19:45 | NUR ---
CLOSING NOTE/NORCO Pt in bed with no s/s resp distress, pt still c/o pain to BLE. Pt declined the Valentines offered earlier-pt stated it made him constipated, pt now requesting Morphine-Endorsed to next shift nurse. IVF infusing well to LFA at ordered rate with no s/s infiltration to sight. Side rails up x3, bed alarm on for safety, call light within reach.
[2021-08-04] MEDS ORDERED: ACETAMINOPHEN 500 MG TABLET PO PRN ×2 (20:15→20:30)
[2021-08-04] MEDS ORDERED: ONDANSETRON HCL 4 MG/2 ML VIAL IVP PRN (20:15)
--- NOTE | 2021-08-04 20:15 | NUR ---
NOTES: pt. informed about his pain medication, will call MD. pt. also asking for his medication for spasm. been c/o of his lower legs, IV sites. IV infusing via left forearm. on radiation monitor and and shows sinus rhythm. uses urinal. on room air. call light at bedside.
[2021-08-04 20:30] VITALS: BP_SYST 133
[2021-08-04] MEDS ORDERED: MORPHINE 4 MG INJ. 4 MG/ML VIAL IVP PRN (20:30)
--- NOTE | 2021-08-04 20:30 | NUR ---
NOTES: called Dr. Allen about pt. pain medication and ordered more medications.
[2021-08-04] MEDS ORDERED: hydrALAZINE HCL 20 MG/ML VIAL IVP PRN (20:45)
[2021-08-04] MEDS ORDERED: TAMSULOSIN HCL 0.4 MG CAP PO SCH (21:00)
[2021-08-04] MEDS: GABAPENTIN 300 MG CAPSULE PO SCH (21:26)
[2021-08-04] MEDS: TAMSULOSIN HCL 0.4 MG CAP PO SCH (21:27)
[2021-08-04] MEDS: NACL 0.9% 1,000 ML IV SCH (21:40)
[2021-08-04] MEDS: MORPHINE 2 MG/ML INJ. SYRINGE IVP PRN (22:41)
--- NOTE | 2021-08-04 22:45 | NUR ---
NOTES: pt. medicated with IV Morphine for c/o bilateral lower extremities chronic pain, pt. was given gabapentin po. pt. needs attended. repositioned self. asking for his spasm medication.
--- NOTE | 2021-08-04 22:50 | NUR ---
NOTES: called Dr. Allen again for clarification of medications ordered and for the spasm.
[2021-08-04] MEDS: CARBIDOPA/LEVODOPA 25/100 MG TABLET PO SCH (23:20)
[2021-08-04] MEDS: methocarbamoL 500 MG TABLET PO SCH (23:20)
--- NOTE | 2021-08-04 23:20 | NUR ---
NOTES: medicated with Robaxin and Sinemet po as ordered.
--- NOTE | 2021-08-05 00:30 | NUR ---
NOTES: pt. gets incontinent of urine, complete linen changed done by TALENT MANAGEMENT SPECIALIST. kept dry and warm. urinal at bedside.
[2021-08-05 01:21] VITALS: BP_SYST 148
--- NOTE | 2021-08-05 02:10 | NUR ---
NOTES" pt. called and asking for pain medication, informed pt. that Morphine is not due yet, offered Tylenol po and given as desired for c/o pain on his legs.
[2021-08-05] MEDS: MORPHINE 2 MG/ML INJ. SYRINGE IVP PRN (03:27)
--- NOTE | 2021-08-05 03:30 | NUR ---
NOTES: pt. called and still having pain on his lower extremities, medicated with IV Morphine.as ordered.
--- NOTE | 2021-08-05 05:14 | NUR ---
Nutrition Update Wilmer Scale 14 noted. Pt admitted for Hypotension Diet: [facility] BMI: 24.7 kg/m2 RD to follow per nutrition care standards.
[2021-08-05] MEDS: NACL 0.9% 1,000 ML IV SCH ×3 (06:45→23:47)
--- NOTE | 2021-08-05 06:46 | NUR ---
CLOSING NOTES; pt. still asleep, will check BS. IVF continuous. bed alarm on, on fall eisk precaution. will endorse to incoming shift. for pT/OT eval today.
[2021-08-05 08:05] VITALS: BP_SYST 153
[2021-08-05] MEDS ORDERED: POLYETHYLENE GLYCOL 3350, 17 GM/ POWD.PACK PO SCH (09:00)
[2021-08-05] MEDS ORDERED: BISACODYL 5 MG TABLET.DR (DULCOLAX) PO SCH (09:00)
[2021-08-05] MEDS: GABAPENTIN 300 MG CAPSULE PO SCH ×3 (09:57→20:59)
[2021-08-05] MEDS: POLYETHYLENE GLYCOL 3350, 17 GM/ POWD.PACK PO SCH ×2 (09:57→20:58)
[2021-08-05] MEDS: BISACODYL 5 MG TABLET.DR (DULCOLAX) PO SCH (09:57)
[2021-08-05] MEDS: methocarbamoL 500 MG TABLET PO SCH ×2 (09:58→21:00)
[2021-08-05] MEDS: CARBIDOPA/LEVODOPA 25/100 MG TABLET PO SCH ×3 (09:58→21:00)
[2021-08-05] MEDS ORDERED: IRBESARTAN 150 MG TABLET (AVAPRO) PO SCH (10:15)
[2021-08-05] MEDS ORDERED: GLIMEPIRIDE 2 MG TABLET PO ONE (11:30)
[2021-08-05] MEDS ORDERED: COMTAN 200 MG TAB PO ONE (11:30)
[2021-08-05] MEDS ORDERED: FINASTERIDE 5 MG TABLET (PROSCAR) PO ONE (11:30)
[2021-08-05] MEDS ORDERED: PRAMIPEXOLE DI-HCL 1 MG TABLET PO ONE (11:30)
[2021-08-05] MEDS: MINERAL OIL 133 ML ENEMA RC PRN ×2 (11:42→17:11)
[2021-08-05] MEDS ORDERED: LOSARTAN POTASSIUM 50 MG TABLET (COZAAR) PO ONE (11:45)
[2021-08-05 12:49] VITALS: BP_SYST 159
--- NOTE | 2021-08-05 13:34 | NUR ---
alert, awake , in and out of bed, with difficulty. Unable to walk, just from bed to bsc, unsteady, needs assistance to walk back to bed. PT works with him at bedside, agreed c/o of constipation, Miralax, dulcolax pills , and mineral oil feet, all given. No result yet. very fine shakiness seen on both hands, now on Mirapex, and Comtan.
[2021-08-05] MEDS: PRAMIPEXOLE DI-HCL 1 MG TABLET PO SCH ×2 (14:59→20:59)
--- NOTE | 2021-08-05 17:15 | NUR ---
came in , adamantly insists another mineral oil fleet for the patient, claimed " at home did the same thing, patient had bm right away, over here, no result yet, until now." one more mineral oil enema given BS down to 68, after one dose only of Amaryl, and Glucophage xr administration, per his attending. juices given, hot tea with splenda offered per patient request.
[2021-08-05 17:19] VITALS: BP_SYST 123
--- NOTE | 2021-08-05 18:47 | NUR ---
BS CHECKED AGAIN NOW, UP TO 81. GOT FIXATED ON HAVING A BM, DID NOT EAT DINNER,
[2021-08-05 20:00] VITALS: BP_SYST 148
--- NOTE | 2021-08-05 20:17 | NUR ---
Received patient from AM shift nurse. Patient is AA&Ox4 able to needs known, denies chest pain or SOB. Patient is currently upset because he states that he is trying to have a bowel movement but still has not been able to. Patient received an enema earlier during am shift so education was provided to give intervention time to work. Chest rise is even and unlabored on RA. Normal heart sounds S1 & S2 present. Active bowel sounds are heard on auscultation, and patient describes some discomfort on palpation. Call light is within reach, bed is in the lowest position and bed rails are up. Will monitor throughout the shift.
[2021-08-05] MEDS: TAMSULOSIN HCL 0.4 MG CAP PO SCH (20:57)
[2021-08-05] MEDS: GLIMEPIRIDE 2 MG TABLET PO SCH (20:57)
[2021-08-06 00:30] VITALS: BP_SYST 140
--- NOTE | 2021-08-06 01:00 | NUR ---
Patient is currently resting with no s/s of distress noted. Call light is within reach, bed is in the lowest position with bed rails up. Will continue to monitor throughout the shift.
--- NOTE | 2021-08-06 06:35 | NUR ---
Patient is currently resting with no s/s of distress noted. Chest rise is even and unlabored. AM BS has been assessed at 135 so no further intervention was needed. All current needs have been met. Call light is within reach, bed is in the lowest position with bed rails up. Will differ further care to am shift for continuity of care.
[2021-08-06 07:57] LABS: BASOPHILS % (AUTO) 0.3 % (0.0-2.0); EOSINOPHILS % (AUTO) 1.1 % (0.0-4.0); HEMATOCRIT 36.5 % (36-54); HEMOGLOBIN 12.1 g/dL (14.0-18.0); LYMPHOCYTES # (AUTO) 1.1 K/uL (1.0-5.5); LYMPHOCYTES % (AUTO) 26.7 % (20.5-51.5); MEAN CORPUSCULAR HEMOGLOBIN 30 pg (27-31); MEAN CORPUSCULAR HGB CONC 33 % (32-36); MEAN CORPUSCULAR VOLUME 92 fL (79.0-98.0); MONOCYTES # (AUTO) 0.3 K/uL (0.0-1.0); MONOCYTES % (AUTO) 7.2 % (1.7-9.3); NEUTROPHILS # (AUTO) 2.6 K/uL (1.8-7.7); NEUTROPHILS % (AUTO) 64.7 % (40.0-70.0); PLATELET COUNT (AUTO) 285 K/uL (130-430); RED BLOOD CELL COUNT(AUTO) 3.98 MIL/uL (4.2-6.2); RED CELL DISTRIBUTION WIDTH 13.5 % (9.0-15.0)
--- NOTE | 2021-08-06 08:00 | NUR ---
Opening Notes Patient is awake, alert and oriented x3. No resp distress noted. Breathing is even and unlabored. Pt remains on RA at this time. Pt is c/o 9/10 abdominal pain, sharp requesting pain meds. Pt is noted guarding abdomen. Per patient, "I dont feel comfortable." Pt reports no BM in 5 days. Administered pain med: Morphine 2 mg IVP @ 0819, tolerating well. Will follow up with Dr Allen for further orders. IV site on right hand 20 gauge intact. NS @ 100 cc/hr, infusing well. Pt remains on bedrest at this time. Pt is refusing to eat this time, poor appetite. Pt was repositioned in bed. All needs met at this time. Safety and fall precautions in place. Bed in lowest position, alarm on, locked. Will continue to monitor.
[2021-08-06] MEDS: MORPHINE 2 MG/ML INJ. SYRINGE IVP PRN ×2 (08:19→22:08)
[2021-08-06] MEDS: POLYETHYLENE GLYCOL 3350, 17 GM/ POWD.PACK PO SCH ×2 (08:19→21:29)
[2021-08-06] MEDS: FINASTERIDE 5 MG TABLET (PROSCAR) PO SCH (08:20)
[2021-08-06] MEDS: COMTAN 200 MG TAB PO SCH (08:20)
[2021-08-06] MEDS: GABAPENTIN 300 MG CAPSULE PO SCH ×3 (08:20→21:26)
[2021-08-06] MEDS: GLIMEPIRIDE 2 MG TABLET PO SCH ×2 (08:21→21:28)
[2021-08-06] MEDS: LOSARTAN POTASSIUM 50 MG TABLET (COZAAR) PO SCH (08:22)
[2021-08-06] MEDS: CARBIDOPA/LEVODOPA 25/100 MG TABLET PO SCH ×3 (08:22→21:27)
[2021-08-06] MEDS: methocarbamoL 500 MG TABLET PO SCH ×2 (08:22→21:26)
[2021-08-06] MEDS: BISACODYL 5 MG TABLET.DR (DULCOLAX) PO SCH (08:22)
[2021-08-06] MEDS: NACL 0.9% 1,000 ML IV SCH ×2 (08:39→21:35)
[2021-08-06 08:44] LABS: ALANINE AMINOTRANSFERASE 26 U/L (12-78); ALBUMIN 3.2 g/dL (3.4-4.8); ANION GAP 6 (5-15); ASPARTATE AMINOTRANSFERASE 27 U/L (10-37); CALCIUM 8.3 mg/dL (8.4-11.0); CHLORIDE 98 mmol/L (98-107); CREATININE 0.85 mg/dL (0.55-1.30); GLUCOSE 140 mg/dL (70-99); POTASSIUM 4.5 mmol/L (3.5-5.1); SODIUM SERUM 130 mmol/L (136-145); TOTAL BILIRUBIN 0.3 mg/dL (0.0-1.0); UREA NITROGEN, BLOOD 11 mg/dL (8-21)
[2021-08-06] MEDS: PRAMIPEXOLE DI-HCL 1 MG TABLET PO SCH ×3 (09:00→21:25)
--- NOTE | 2021-08-06 10:00 | NUR ---
Notes Pt is sleeping at this time. Pt reports abdominal pain, will follow up with Dr. Allen. No resp distress.
--- NOTE | 2021-08-06 11:29 | NUR ---
md visit seen by dr mendes . new order given entered . primary RN made aware.
--- NOTE | 2021-08-06 12:00 | NUR ---
Notes Patient is laying in bed. C/o abdominal pain. Pending stool softeners. No resp distress noted. Will continue to monitor.
--- NOTE | 2021-08-06 12:15 | NUR ---
Patient is being seen and examined by DR VENEGAS.
--- NOTE | 2021-08-06 12:39 | NUR ---
CONSTIPATION: REASON FOR CONSULT: CONSTIPATION CONSULTING PHYSICIAN: MELA ORDERED BY: RUBI SPOKE WITH [facility] [phone]
--- NOTE | 2021-08-06 12:45 | NUR ---
Patient is being seen and examined by DR PLAZA. Rectal exam performed by bedside. No reported constipation. KUB pending.
[2021-08-06 13:12] VITALS: BP_SYST 123
[2021-08-06] MEDS ORDERED: MAGNESIUM CITRATE 300 ML ORAL SOLUTION PO ONE (13:30)
--- NOTE | 2021-08-06 14:00 | NUR ---
Notes Patient is laying in bed, resting at this time. Magnesium Citrate was given, tolerated well. Pt was educated that if the Mag citrate was not effective, we will perform a mineral oil enema. Pt aware and agreed. Pt reports lessened pain, 5/10. No resp distress. Will continue to monitor.
--- NOTE | 2021-08-06 14:30 | NUR ---
Reported KUB results to Dr. Pink, confirmed that its okay to give Mineral Oil. Okay to give.
--- NOTE | 2021-08-06 15:01 | NUR ---
CONSULTATION: REASON FOR CONSULT: SYNCOPE CONSULTING PHYSICIAN: Beth HINDS ORDERED BY: Ferdinand VENEGAS SPOKE WITH LANE [phone]
--- NOTE | 2021-08-06 16:00 | NUR ---
Notes Patient is sleeping at this time. No resp distress noted. Breathing is even and unlabored. No BM at this time. Will continue to monitor.
[2021-08-06 16:09] VITALS: BP_SYST 125
[2021-08-06] MEDS: MINERAL OIL 30 ML UDC PO SCH ×2 (17:46→21:28)
[2021-08-06] MEDS: PROMETHAZINE-DM 6.25 MG-15 MG/5 ML UDC PO PRN (17:46)
--- NOTE | 2021-08-06 18:29 | NUR ---
Closing Notes Patient is awake, alert and oriented x3. No resp distress noted. Breathing is even and unlabored. Pt denies any pain at this time. Pt denies any abdominal pain at this time. NO BM noted yet. Stool softeners given, will endorse to next nurse to follow up. IV site on left FA 20 gauge intact at this time. NS @ 100 cc/hr, infusing well at this time. IV on right hand 20 gauge intact at this time. Pt remains on bedrest at this time. All needs met at this time. Safety and fall precautions in place. Bed in lowest position, alarm on, locked. Will continue to monitor.
[2021-08-06 19:42] LABS: BASOPHILS % (AUTO) 0.3 % (0.0-2.0); EOSINOPHILS # (AUTO) 0.1 K/uL (0.0-0.4); EOSINOPHILS % (AUTO) 1.1 % (0.0-4.0); HEMATOCRIT 36.6 % (36-54); HEMOGLOBIN 12.3 g/dL (14.0-18.0); LYMPHOCYTES # (AUTO) 1.3 K/uL (1.0-5.5); LYMPHOCYTES % (AUTO) 26.1 % (20.5-51.5); MEAN CORPUSCULAR HEMOGLOBIN 31 pg (27-31); MEAN CORPUSCULAR HGB CONC 34 % (32-36); MEAN CORPUSCULAR VOLUME 91 fL (79.0-98.0); MONOCYTES # (AUTO) 0.4 K/uL (0.0-1.0); MONOCYTES % (AUTO) 7.8 % (1.7-9.3); NEUTROPHILS # (AUTO) 3.2 K/uL (1.8-7.7); NEUTROPHILS % (AUTO) 64.7 % (40.0-70.0); PLATELET COUNT (AUTO) 274 K/uL (130-430); RED BLOOD CELL COUNT(AUTO) 4.02 MIL/uL (4.2-6.2); RED CELL DISTRIBUTION WIDTH 13.4 % (9.0-15.0); WHITE BLOOD COUNT (AUTO) 4.9 K/uL (4.8-10.8)
[2021-08-06 19:49] LABS: ALANINE AMINOTRANSFERASE 17 U/L (12-78); ALBUMIN 3.3 g/dL (3.4-4.8); ANION GAP 6 (5-15); ASPARTATE AMINOTRANSFERASE 29 U/L (10-37); CALCIUM 8.2 mg/dL (8.4-11.0); CHLORIDE 98 mmol/L (98-107); CREATININE 0.85 mg/dL (0.55-1.30); GLUCOSE 101 mg/dL (70-99); POTASSIUM 4.4 mmol/L (3.5-5.1); SODIUM SERUM 131 mmol/L (136-145); TOTAL BILIRUBIN 0.4 mg/dL (0.0-1.0); UREA NITROGEN, BLOOD 13 mg/dL (8-21)
[2021-08-06 20:00] VITALS: BP_SYST 149
[2021-08-06 20:02] LABS: CHOLESTEROL 176 mg/dL (<200); HDL CHOLESTEROL 53 mg/dL (>45); LDL CHOLESTEROL 104 mg/dL (<100); TRIGLYCERIDES 124 mg/dL (30-150)
[2021-08-06 20:06] LABS: C-REACTIVE PROTEIN QUANT < 0.2 mg/dL (0-0.5)
--- NOTE | 2021-08-06 20:16 | NUR ---
Received patient from am shift nurse. Patient is AA&Ox3 able to make needs known denies chest pain or SOB. Chest rise is even and unlabored on RA. Normal heart sounds present. Active bowel sounds x4, reports some discomfort with palpation but no distention is noted. Patient ambulates with walker and with supervision and assist x1. PIV to LFA is patent and infusing. Patient is stable. Call light is within reach , bed is in the lowest position with bed rails up. Will continue to monitor throughout the shift.
[2021-08-06] MEDS: TAMSULOSIN HCL 0.4 MG CAP PO SCH (21:28)
[2021-08-07] VITALS: BP_SYST 103
--- NOTE | 2021-08-07 00:30 | NUR ---
Patient is in bed sleeping with no s/s of distress noted at this time. Call light is within reach, bed is in the lowest position with bed rails up for safety. Will continue to monitor throughout the shift.
[2021-08-07] MEDS: PROMETHAZINE-DM 6.25 MG-15 MG/5 ML UDC PO PRN (02:16)
--- NOTE | 2021-08-07 02:30 | NUR ---
Patient request PRN promethazine for cough. Medication was administered as ordered and patient is tolerating it well. No other s/s of distress is noted.
[2021-08-07] MEDS: ONDANSETRON HCL 4 MG/2 ML VIAL IVP PRN ×2 (06:18→21:17)
[2021-08-07] MEDS: MORPHINE 2 MG/ML INJ. SYRINGE IVP PRN ×2 (06:21→21:28)
--- NOTE | 2021-08-07 06:44 | NUR ---
Patient is currently resting in bed no s/s of distress is noted. Patient denies discomfort and received PRN pain medication at 0530. All current needs have been met. Call light is within reach, bed is locked in the lowest position with bed rails up. IV is patent, flushes well and saline locked. Will differ further care to am shift nurse for continuity of care.
--- NOTE | 2021-08-07 08:05 | NUR ---
Opening note patient resting in bed, a/ox4, hard of hearing, assessment complete, IV line is patent and infusing well, educated personnel recruiter light system and plan of care, he verbalized understanding, call light within reach, bed in lowest position, three side rails up, bed alarm on, fall and aspiration precautions in place.
[2021-08-07] MEDS: BISACODYL 5 MG TABLET.DR (DULCOLAX) PO SCH (09:08)
[2021-08-07] MEDS: methocarbamoL 500 MG TABLET PO SCH ×2 (09:08→21:20)
[2021-08-07] MEDS: CARBIDOPA/LEVODOPA 25/100 MG TABLET PO SCH ×3 (09:09→21:20)
[2021-08-07] MEDS: LOSARTAN POTASSIUM 50 MG TABLET (COZAAR) PO SCH (09:09)
[2021-08-07] MEDS: GABAPENTIN 300 MG CAPSULE PO SCH ×3 (09:09→21:19)
[2021-08-07] MEDS: MINERAL OIL 30 ML UDC PO SCH ×3 (09:09→21:22)
[2021-08-07] MEDS: FINASTERIDE 5 MG TABLET (PROSCAR) PO SCH (09:09)
[2021-08-07] MEDS: POLYETHYLENE GLYCOL 3350, 17 GM/ POWD.PACK PO SCH ×2 (09:10→21:22)
[2021-08-07] MEDS: NACL 0.9% 1,000 ML IV SCH ×2 (09:11→16:26)
[2021-08-07] MEDS: PRAMIPEXOLE DI-HCL 1 MG TABLET PO SCH ×3 (09:24→21:20)
[2021-08-07] MEDS: COMTAN 200 MG TAB PO SCH (09:24)
[2021-08-07] MEDS: GLIMEPIRIDE 2 MG TABLET PO SCH ×2 (09:24→21:21)
[2021-08-07 09:55] VITALS: BP_SYST 114
--- NOTE | 2021-08-07 11:03 | NUR ---
Echocardiogram at this time, patient tolerating well. Addendum: 08/07/21 at 1230 by Alber Appiah RN EF 74-75%
--- NOTE | 2021-08-07 12:00 | NUR ---
RN rounds patient resting in bed, awake, provided with lunch tray, aspiration precautions in place, IV line is patent and infusing well, continuing to monitor the patient, bed in lowest position, two side rails up, bed alarm on, call light placed within reach, fall precautions in place.
[2021-08-07 12:03] VITALS: BP_SYST 105
--- NOTE | 2021-08-07 16:05 | NUR ---
Low blood glucose POC blood glucose is 52 at this time, patient is alert and oriented and not in any distress, provided with [place] Juice 8oz total, will recheck the blood glucose in 15 minutes. Addendum: 08/07/21 at 1633 by Alber Appiah RN 15 min recheck resulted in a blood glucose of 40 - activated hypoglycemia protocol and administered D50 IV push. Addendum: 08/07/21 at 1658 by Alber Appiah RN blood glucose is now 136, patient is still alert and oriented and not in any distress.
[2021-08-07 16:15] VITALS: BP_SYST 115
[2021-08-07] MEDS: DEXTROSE 50%-WATER 50 ML DISP.SYRIN IVP PRN (16:28)
[2021-08-07] MEDS ORDERED: DEXTROSE 50% JECT 50 ML DISP.SYRIN ONE (16:28)
[2021-08-07] MEDS ORDERED: GLUCOSE (DEXTROSE) ORAL GEL -Adults PO PRN (16:45)
--- NOTE | 2021-08-07 18:17 | NUR ---
Closing note patient resting in bed, eating dinner, aspiration precautions in place, IV line is patent and infusing well, all needs met, will endorse report to NOC shift nurse, bed in lowest position, two side rails up, bed alarm on, fall precautions in place, call light within reach.
[2021-08-07 20:05] VITALS: BP_SYST 89
--- NOTE | 2021-08-07 20:15 | NUR ---
Received patient from AM shift. Patient is AA&Ox4 able to make needs know, denies chest pain or SOB. Chest rise is even and unlabored on RA. Normal heart sounds present. Active bowel sounds x4, has some tenderness with palpation. Patient reports pain in back and ABD at 6-7/10. PIV is present on LFA and is infusing NS at 100 ml/hr. BP was low ar 89/56 but will reassess again before administering narcotic pain relief. Call light is within reach, bed is locked and in the lowest position with bed rails up. Will continue to monitor.
[2021-08-07 21:15] VITALS: BP_SYST 125
[2021-08-07] MEDS: TAMSULOSIN HCL 0.4 MG CAP PO SCH (21:21)
[2021-08-08] VITALS (7 sets, daily range): BP systolic 98–159
--- NOTE | 2021-08-08 | NUR ---
Patient is sleeping with no s/s of distress noted at this time. Will continue to monitor.
--- NOTE | 2021-08-08 02:30 | NUR ---
Patient reported nausea and a feeling of wanting to vomit. PRN ondansetron was administered as ordered. Will continue to monitor.
[2021-08-08] MEDS: ONDANSETRON HCL 4 MG/2 ML VIAL IVP PRN (02:46)
[2021-08-08] MEDS: NACL 0.9% 1,000 ML IV SCH ×2 (02:52→15:46)
--- NOTE | 2021-08-08 06:37 | NUR ---
Patient is in bed resting with no s/s of distress noted at this time. All current needs have been met throughout the shift. Patient has nausea earlier in the shift and received zofran but is currently denying any s/s of N/V. Call light is within reach, bed is locked and in the lowest position with bed rails up. Will differ further care to AM shift nurse for continuity of care.
--- NOTE | 2021-08-08 07:00 | NUR ---
REPORT RECEIVED FROM GISELA PEREZ. PT IS A/OX4, VERY [place], VS STABLE, NO ACUTE DISTRESS NOTED, NSR TO ST ON TELE, IV FLUIDS, UP WITH ASSIST TO THE COMMODE. ASSUMING CARE FOR PT. WILL CONTINUE TO MONITOR PT.
--- NOTE | 2021-08-08 07:29 | NUR ---
PHYSICAL THERAPY CO-SIGN The Physical Therapy Progress Notes documented by Flux Core Welder have been reviewed. Reviewed/Co-Signed by: Lam Laguna Documentation Done by: PATRICK DANIEL PTA Addendum: 08/08/21 at 0730 by Lam Laguna PT Amended: Links added.
[2021-08-08] MEDS: MINERAL OIL 30 ML UDC PO SCH ×3 (08:43→21:00)
[2021-08-08] MEDS: GABAPENTIN 300 MG CAPSULE PO SCH ×3 (08:44→21:00)
[2021-08-08] MEDS: GLIMEPIRIDE 2 MG TABLET PO SCH ×2 (08:44→21:00)
[2021-08-08] MEDS: BISACODYL 5 MG TABLET.DR (DULCOLAX) PO SCH (08:45)
[2021-08-08] MEDS: LOSARTAN POTASSIUM 50 MG TABLET (COZAAR) PO SCH (08:46)
[2021-08-08] MEDS: FINASTERIDE 5 MG TABLET (PROSCAR) PO SCH (08:47)
[2021-08-08] MEDS: CARBIDOPA/LEVODOPA 25/100 MG TABLET PO SCH ×3 (08:47→21:00)
[2021-08-08] MEDS: methocarbamoL 500 MG TABLET PO SCH ×2 (08:47→21:00)
[2021-08-08] MEDS: POLYETHYLENE GLYCOL 3350, 17 GM/ POWD.PACK PO SCH ×2 (08:48→21:00)
[2021-08-08] MEDS: PRAMIPEXOLE DI-HCL 1 MG TABLET PO SCH ×3 (09:00→21:00)
--- NOTE | 2021-08-08 09:47 | NUR ---
Pt has 1 moderate soft brown bowel movement. Beryl care provided. Called Breanne from community case manager to inform that patient had 1 bowel movement. Unable to reach at this time. Will call again later. Physical therapist came to work with patient. Will closely monitor patient.
[2021-08-08] MEDS ORDERED: DIATR MEGLU/DIATRIZ SOD 30 ML SOLUTION PO ONE (10:35)
[2021-08-08] MEDS: COMTAN 200 MG TAB PO SCH (12:14)
--- NOTE | 2021-08-08 13:50 | NUR ---
PT OFF THE UNIT TO CT.
--- NOTE | 2021-08-08 14:39 | NUR ---
Patient was seen for OT eval, cooperative and agreeable. Denies any pain nor headache during and after tx. Patient will be seen for OT tx QD 5x/wk to increase pt's independence with ADL task. PLs see OT evaluation form in chart for more details.
--- NOTE | 2021-08-08 18:14 | NUR ---
BLOOD SUGAR 61, RECHECK 56. PT IS ASYMPTOMATIC. PT IS EATING DINNER WILL RECHECK BLOOD SUGAR AND WILL INFORM .
[2021-08-08] MEDS: DEXTROSE 50%-WATER 50 ML DISP.SYRIN IVP PRN (18:39)
--- NOTE | 2021-08-08 18:59 | NUR ---
RECHECKED BS 150MIN POST DINNER. BLOOD SUGAR RECHECK 56. D50 IV GIVEN. RECHECKED IN 15 MIN WIT BS 211. CALLED DR. AGARWAL TO INFORM. LEFT MESSAGE TO ANSWERING SERVICE. AWAITING FOR CALL BACK. ALSO INFORMED WELDING MACHINE OPERATOR PLASMA ARC ZENY REGARDING PT DROPPED IN BLOOD SUGAR.
--- NOTE | 2021-08-08 19:52 | NUR ---
REPORT GIVEN TO AMIRA PEREZ RECEIVING NURSE. INFORMED THAT I PLACED A PAGED TO DR. VENEGAS REGARDING BS 56, NOW 211 AFTER D50 GIVEN. ALSO, NEED CLARIFICATION IF ANY BLOOD SUGAR MEDICATION NEEDS TO BE MODIFIED OR DISCONTINUED. SON WILL ANIMAL BOUNTY HUNTER PT AT 2030. D/C PAPER IS DONE. RN NEEDS TO GO OVER D/C INSTRUCTION WITH THE PATIENT SON AND THE PATIENT. POINTED OUT TO RN TO STOPPED METFORMIN X2 DAYS AND RESUME THERE AFTER.
[2021-08-08] MEDS: TAMSULOSIN HCL 0.4 MG CAP PO SCH (21:00)
--- NOTE | 2021-08-08 21:45 | NUR ---
PATIENT ALERT AND ORIENTED WITH SON AT BEDSIDE. PATIENT DISCHARGED VIA WHEELCHAIR ACCOMPANIED BY SON AT 2145. DISCHARGE INSTRUCTIONS GIVEN TO PATIENT AND SON PER PHYSICIAN ORDERS. RN DISCUSSED DISCHARGE INSTRUCTIONS, MEDICATION ORDERS AND PHYSICIAN FOLLOW UP. PATIENT DENIES PAIN OR DISCOMFORT AT DISCHARGE. PATIENT AND SON RECEPTIVE TO RN INSTRUCTIONS. IV DISCONTINUED PER RN. NO ACUTE DISTRESS NOTED.
--- NOTE | 2021-08-09 07:00 | NUR ---
PHYSICAL THERAPY CO-SIGN The Physical Therapy Progress Notes documented by Janitor And Cleaner have been reviewed. Reviewed/Co-Signed by: Lam Laguna Documentation Done by: PATRICK DANIEL PTA Addendum: 08/09/21 at 0700 by Lam Laguna PT Amended: Links added.
== END 2021-08-08 21:57 | disposition home or self-care (01) | DRG 312 ==
LOC: SED 11:12 → STU 14:05
PROVIDERS: ADMIT Family Medicine; ATTEND Family Medicine
DX: I95.1 Orthostatic hypotension (principal); K59.00 Constipation, unspecified; G20 Parkinson's disease; E11.40 Type 2 diabetes mellitus with diabetic neuropathy, unspecified; G89.29 Other chronic pain; I10 Essential (primary) hypertension; I25.10 Atherosclerotic heart disease of native coronary artery without angina pectoris; N40.0 Benign prostatic hyperplasia without lower urinary tract symptoms; M47.9 Spondylosis, unspecified; E78.00 Pure hypercholesterolemia, unspecified; T50.995A Adverse effect of other drugs, medicaments and biological substances, initial encounter; M54.50 Low back pain, unspecified; Z20.822 Contact with and (suspected) exposure to COVID-19; Z88.8 Allergy status to other drugs, medicaments and biological substances; Z79.84 Long term (current) use of oral hypoglycemic drugs; Z79.899 Other long term (current) drug therapy; Y92.89 Other specified places as the place of occurrence of the external cause
CPT/HCPCS: 36415; 70450-TC; 71045; 74018; 74021; 76376; 80053; 80061; 81000; 82962; 84484; 85025; 86140; 93005; 93306; 93880; 96360; 97110-GP; 97116-GP; 97530-GP; 99285; G0378; J2270; J2405; J3480; J7030; Q9964; Q9967

== ENCOUNTER 2021-11-20 02:20 | Emergency (ER) | payer OTHER, MEDICARE, SELFPAY ==
[~2021-11-20] VITALS: Ht 177.8 cm; Wt 68.0 kg
[~2021-11-20 02:20] MED LIST changes: +DILT180C67 PO; +ENTA200T2 PO; +FINA5TAB3 PO; +GLIM4TAB PO; -HYDR-3927 PO; +IRBE150T48 PO; -LOSA100T3 PO; -META800T85 PO; +PRAM1TAB4 PO; +PRAV40TA63 PO
[2021-11-20 02:35] VITALS: BP_SYST 141
[2021-11-20 03:03] LABS: BASOPHILS % (AUTO) 0.4 % (0.0-2.0); EOSINOPHILS # (AUTO) 0.1 K/uL (0.0-0.4); EOSINOPHILS % (AUTO) 1.2 % (0.0-4.0); HEMATOCRIT 37.7 % (36-54); HEMOGLOBIN 12.2 g/dL (14.0-18.0); LYMPHOCYTES # (AUTO) 1.6 K/uL (1.0-5.5); LYMPHOCYTES % (AUTO) 24.6 % (20.5-51.5); MEAN CORPUSCULAR HEMOGLOBIN 29 pg (27-31); MEAN CORPUSCULAR HGB CONC 33 % (32-36); MEAN CORPUSCULAR VOLUME 89 fL (79.0-98.0); MONOCYTES # (AUTO) 0.4 K/uL (0.0-1.0); MONOCYTES % (AUTO) 6.1 % (1.7-9.3); NEUTROPHILS # (AUTO) 4.5 K/uL (1.8-7.7); NEUTROPHILS % (AUTO) 67.7 % (40.0-70.0); PLATELET COUNT (AUTO) 260 K/uL (130-430); RED BLOOD CELL COUNT(AUTO) 4.22 MIL/uL (4.2-6.2); RED CELL DISTRIBUTION WIDTH 13.7 % (9.0-15.0); WHITE BLOOD COUNT (AUTO) 6.7 K/uL (4.8-10.8)
[2021-11-20] MEDS ORDERED: MORPHINE 2 MG/ML INJ. SYRINGE IVP ONE (04:15)
[2021-11-20 04:54] LABS: ALANINE AMINOTRANSFERASE 14 U/L (12-78); ASPARTATE AMINOTRANSFERASE 24 U/L (10-37); CALCIUM 8.5 mg/dL (8.4-11.0); CHLORIDE 99 mmol/L (98-107); CREATININE 0.74 mg/dL (0.55-1.30); GLUCOSE 84 mg/dL (70-99); POTASSIUM 4.9 mmol/L (3.5-5.1); SODIUM SERUM 133 mmol/L (136-145); TOTAL BILIRUBIN 0.4 mg/dL (0.0-1.0); UREA NITROGEN, BLOOD 20 mg/dL (8-21)
[2021-11-20 06:29] LABS: ANION GAP 8 (5-15)
[2021-11-20] MEDS ORDERED: fentaNYL CITRATE/PF 100 MCG/2 ML AMP IVP ONE (06:30)
[2021-11-20 06:39] LABS: BILIRUBIN,URINE NEGATIVE (NEGATIVE); BLOOD, URINE NEGATIVE (NEGATIVE); CLARITY/URINE CLEAR (CLEAR); COLOR,URINE YELLOW (YELLOW); GLUCOSE,URINE NEGATIVE (NEGATIVE); KETONES,URINE NEGATIVE (NEGATIVE); LEUKOCYTE ESTERASE ,URINE NEGATIVE (NEGATIVE); NITRITE, URINE NEGATIVE (NEGATIVE); PROTEIN URINE NEGATIVE (NEGATIVE); UROBILINOGEN,URINE 0.2 (0.2-1.0)
[2021-11-20 10:07] VITALS: BP_SYST 138
== END 2021-11-20 10:00 | disposition home or self-care (01) ==
LOC: SED 02:20
DX: G89.29 Other chronic pain (principal); M54.50 Low back pain, unspecified; E11.9 Type 2 diabetes mellitus without complications; Z20.822 Contact with and (suspected) exposure to COVID-19; Z79.899 Other long term (current) drug therapy; Z88.8 Allergy status to other drugs, medicaments and biological substances; Z86.79 Personal history of other diseases of the circulatory system
CPT/HCPCS: 36415; 72170; 74176; 76376; 80053; 81003; 82962; 85025; 87426; 96374; 96375; 99285; J2270; J3010

== ENCOUNTER 2022-01-01 08:21 | Emergency (ER) | payer OTHER, MEDICARE ==
[~2022-01-01] VITALS: Ht 170.2 cm; Wt 68.0 kg
[2022-01-01 08:24] VITALS: BP_SYST 142
[2022-01-01 11:25] VITALS: BP_SYST 129
== END 2022-01-01 11:25 | disposition home or self-care (01) ==
LOC: SED 08:21
DX: K91.841 Postprocedural hemorrhage of a digestive system organ or structure following other procedure (principal); I10 Essential (primary) hypertension; E11.9 Type 2 diabetes mellitus without complications; E78.00 Pure hypercholesterolemia, unspecified; Z79.01 Long term (current) use of anticoagulants; Z88.8 Allergy status to other drugs, medicaments and biological substances; Z79.899 Other long term (current) drug therapy
CPT/HCPCS: 99283

== ENCOUNTER 2022-09-14 12:02 | Inpatient (IN) | payer OTHER, MEDICARE ==
[~2022-09-14] VITALS: Ht 165.1 cm; Wt 102.1 kg
[~2022-09-14 12:02] MED LIST changes: -CARB1TAB21 PO; +CARB1TAB33 PO
[2022-09-14 12:06] VITALS: BP_SYST 89
[2022-09-14 12:32] LABS: BASOPHILS % (AUTO) 0.3 % (0.0-2.0); EOSINOPHILS # (AUTO) 0.1 K/uL (0.0-0.4); EOSINOPHILS % (AUTO) 1.4 % (0.0-4.0); HEMATOCRIT 32.3 % (36-54); HEMOGLOBIN 10.6 g/dL (14.0-18.0); LYMPHOCYTES # (AUTO) 1.3 K/uL (1.0-5.5); MEAN CORPUSCULAR HEMOGLOBIN 30 pg (27-31); MEAN CORPUSCULAR HGB CONC 33 % (32-36); MEAN CORPUSCULAR VOLUME 91 fL (79.0-98.0); MONOCYTES # (AUTO) 0.3 K/uL (0.0-1.0); NEUTROPHILS # (AUTO) 2.9 K/uL (1.8-7.7); NEUTROPHILS % (AUTO) 63.3 % (40.0-70.0); PLATELET COUNT (AUTO) 247 K/uL (130-430); RED BLOOD CELL COUNT(AUTO) 3.53 MIL/uL (4.2-6.2); RED CELL DISTRIBUTION WIDTH 14.3 % (9.0-15.0); WHITE BLOOD COUNT (AUTO) 4.6 K/uL (4.8-10.8)
[2022-09-14 12:43] LABS: ANION GAP 5 (5-15); CALCIUM 8.5 mg/dL (8.4-11.0); CHLORIDE 98 mmol/L (98-107); CREATININE 1.23 mg/dL (0.55-1.30); GLUCOSE 134 mg/dL (70-99); UREA NITROGEN, BLOOD 18 mg/dL (8-21)
[2022-09-14 12:50] LABS: ALANINE AMINOTRANSFERASE 7 U/L (12-78); ALBUMIN 2.9 g/dL (3.4-4.8); ASPARTATE AMINOTRANSFERASE 14 U/L (10-37); TOTAL BILIRUBIN 0.5 mg/dL (0.0-1.0)
[2022-09-14] MEDS ORDERED: HYDROcodone/ACETAMIN 5-325 MG TAB (NORCO/ VICODIN) PO ONE (16:45)
[2022-09-14] MEDS ORDERED: cefTRIAXone 1 GM in D5W 50 ML IV ONE (16:45)
[2022-09-14] MEDS ORDERED: AZITHROMYCIN 500 MG in NS 250 ML IV ONE (16:45)
[2022-09-14] MEDS ORDERED: cefTRIAXone 1 GM VIAL ONE (16:49)
[2022-09-14] MEDS ORDERED: AZITHROMYCIN 500 MG/VIAL (ZITHROMAX) IV ONE ×2 (17:27)
[2022-09-14] MEDS ORDERED: ONDANSETRON HCL 4 MG/2 ML VIAL IVP PRN (18:15)
[2022-09-14] MEDS ORDERED: ACETAMINOPHEN 500 MG TABLET PO PRN (18:15)
[2022-09-14] MEDS: CARBIDOPA/LEVODOPA 25/100 MG TABLET PO SCH (21:45)
[2022-09-14] MEDS ORDERED: ENALAPRILAT DIHYDRATE 1.25 MG/ML VIAL IVP PRN (22:00)
[2022-09-14] MEDS: GABAPENTIN 300 MG CAPSULE PO SCH (22:30)
[2022-09-14 23:28] VITALS: BP_SYST 136
[2022-09-15 04:00] VITALS: BP_SYST 124
[2022-09-15] MEDS: GLIMEPIRIDE 2 MG TABLET PO SCH ×3 (04:50→17:28)
[2022-09-15] MEDS: PIPERACILLIN/TAZO 4.5 GM in NS 100 ML IV SCH ×3 (07:43→22:01)
[2022-09-15 08:00] VITALS: BP_SYST 148
[2022-09-15] MEDS ORDERED: SENNOSIDES 8.6 MG TABLET PO SCH (09:00)
[2022-09-15] MEDS: SENNOSIDES/DOCUSATE SODIUM 1 TAB TABLET(SENOKOT-S) PO SCH ×3 (09:00→22:01)
[2022-09-15] MEDS: GABAPENTIN 300 MG CAPSULE PO SCH ×3 (09:01→22:00)
[2022-09-15] MEDS: DILTIAZEM HCL 180 MG CAP.SR.24H PO SCH (09:02)
[2022-09-15] MEDS: LOSARTAN POTASSIUM 50 MG TABLET (COZAAR) PO SCH (09:02)
[2022-09-15 11:10] VITALS: BP_SYST 145
[2022-09-15] MEDS: COMTAN 200 MG TAB PO SCH (11:47)
[2022-09-15] MEDS: PRAMIPEXOLE DI-HCL 1 MG TABLET PO SCH ×3 (11:48→22:01)
[2022-09-15] MEDS: CARBIDOPA/LEVODOPA 25/100 MG TABLET PO SCH ×2 (11:48→22:01)
[2022-09-15] MEDS: FINASTERIDE 5 MG TABLET (PROSCAR) PO SCH (11:48)
[2022-09-15 17:00] VITALS: BP_SYST 100
[2022-09-15 20:00] VITALS: BP_SYST 85
[2022-09-15] MEDS ORDERED: NACL 0.9% 1,000 ML IV ONE (21:00)
[2022-09-15] MEDS ORDERED: RIVAROXABAN 10 MG TABLET PO SCH (22:00)
[2022-09-15] MEDS: TAMSULOSIN HCL 0.4 MG CAP PO SCH (22:01)
[2022-09-15] MEDS: INSULIN REGULAR, HUMAN 100 UNITS/ML, 3 ML VIAL (humuLIN R) SUBCUT PRN (22:28)
[2022-09-16] VITALS: BP_SYST 115
[2022-09-16] MEDS: GLIMEPIRIDE 2 MG TABLET PO SCH ×2 (06:08→16:26)
[2022-09-16] MEDS: PIPERACILLIN/TAZO 4.5 GM in NS 100 ML IV SCH ×3 (06:09→23:14)
[2022-09-16 08:00] VITALS: BP_SYST 133
[2022-09-16] MEDS: DILTIAZEM HCL 180 MG CAP.SR.24H PO SCH (08:51)
[2022-09-16] MEDS: SENNOSIDES/DOCUSATE SODIUM 1 TAB TABLET(SENOKOT-S) PO SCH ×2 (08:51→20:59)
[2022-09-16] MEDS: PRAMIPEXOLE DI-HCL 1 MG TABLET PO SCH ×3 (08:51→21:00)
[2022-09-16] MEDS: COMTAN 200 MG TAB PO SCH (08:52)
[2022-09-16] MEDS: LOSARTAN POTASSIUM 50 MG TABLET (COZAAR) PO SCH (08:52)
[2022-09-16] MEDS: FINASTERIDE 5 MG TABLET (PROSCAR) PO SCH (08:52)
[2022-09-16] MEDS: CARBIDOPA/LEVODOPA 25/100 MG TABLET PO SCH ×2 (08:52→20:59)
[2022-09-16] MEDS: GABAPENTIN 300 MG CAPSULE PO SCH ×3 (08:53→20:59)
[2022-09-16 08:55] LABS: BASOPHILS % (AUTO) 0.3 % (0.0-2.0); EOSINOPHILS # (AUTO) 0.1 K/uL (0.0-0.4); EOSINOPHILS % (AUTO) 1.1 % (0.0-4.0); HEMATOCRIT 32.6 % (36-54); HEMOGLOBIN 10.7 g/dL (14.0-18.0); LYMPHOCYTES # (AUTO) 1.3 K/uL (1.0-5.5); LYMPHOCYTES % (AUTO) 21.9 % (20.5-51.5); MEAN CORPUSCULAR HEMOGLOBIN 30 pg (27-31); MEAN CORPUSCULAR HGB CONC 33 % (32-36); MEAN CORPUSCULAR VOLUME 92 fL (79.0-98.0); MONOCYTES # (AUTO) 0.4 K/uL (0.0-1.0); NEUTROPHILS # (AUTO) 4.2 K/uL (1.8-7.7); NEUTROPHILS % (AUTO) 70.7 % (40.0-70.0); PLATELET COUNT (AUTO) 223 K/uL (130-430); RED BLOOD CELL COUNT(AUTO) 3.55 MIL/uL (4.2-6.2)
[2022-09-16 09:04] LABS: ALANINE AMINOTRANSFERASE 8 U/L (12-78); ALBUMIN 2.8 g/dL (3.4-4.8); ANION GAP 5 (5-15); ASPARTATE AMINOTRANSFERASE 17 U/L (10-37); CHLORIDE 99 mmol/L (98-107); CREATININE 1.43 mg/dL (0.55-1.30); GLUCOSE 142 mg/dL (70-99); TOTAL BILIRUBIN 0.5 mg/dL (0.0-1.0); UREA NITROGEN, BLOOD 17 mg/dL (8-21)
[2022-09-16] MEDS: NACL 0.9% 1,000 ML IV SCH ×2 (09:10)
[2022-09-16] MEDS: INSULIN REGULAR, HUMAN 100 UNITS/ML, 3 ML VIAL (humuLIN R) SUBCUT PRN ×2 (11:18→21:08)
[2022-09-16 11:27] VITALS: BP_SYST 100
[2022-09-16 17:26] VITALS: BP_SYST 90
[2022-09-16 20:00] VITALS: BP_SYST 125
[2022-09-16] MEDS: TAMSULOSIN HCL 0.4 MG CAP PO SCH (20:59)
[2022-09-16] MEDS ORDERED: PIPERACILLIN/TAZOBACTAM 4.5 GM/VIAL (ZOSYN) IV ONE (22:20)
[2022-09-17] VITALS: BP_SYST 129
[2022-09-17 04:00] VITALS: BP_SYST 135
[2022-09-17] MEDS ORDERED: PIPERACILLIN/TAZOBACTAM 4.5 GM/VIAL (ZOSYN) IV ONE (05:42)
[2022-09-17] MEDS: GLIMEPIRIDE 2 MG TABLET PO SCH ×2 (06:12→16:34)
[2022-09-17] MEDS: PIPERACILLIN/TAZO 4.5 GM in NS 100 ML IV SCH ×3 (06:12→21:44)
[2022-09-17 06:42] LABS: BASOPHILS % (AUTO) 0.4 % (0.0-2.0); EOSINOPHILS # (AUTO) 0.2 K/uL (0.0-0.4); EOSINOPHILS % (AUTO) 3.6 % (0.0-4.0); HEMATOCRIT 29.5 % (36-54); HEMOGLOBIN 10.1 g/dL (14.0-18.0); LYMPHOCYTES # (AUTO) 1.3 K/uL (1.0-5.5); LYMPHOCYTES % (AUTO) 29.6 % (20.5-51.5); MEAN CORPUSCULAR HEMOGLOBIN 31 pg (27-31); MEAN CORPUSCULAR HGB CONC 34 % (32-36); MEAN CORPUSCULAR VOLUME 91 fL (79.0-98.0); MONOCYTES # (AUTO) 0.3 K/uL (0.0-1.0); NEUTROPHILS # (AUTO) 2.6 K/uL (1.8-7.7); NEUTROPHILS % (AUTO) 60.4 % (40.0-70.0); PLATELET COUNT (AUTO) 198 K/uL (130-430); RED BLOOD CELL COUNT(AUTO) 3.26 MIL/uL (4.2-6.2); RED CELL DISTRIBUTION WIDTH 14.3 % (9.0-15.0); WHITE BLOOD COUNT (AUTO) 4.4 K/uL (4.8-10.8)
[2022-09-17 07:05] LABS: ALANINE AMINOTRANSFERASE 15 U/L (12-78); ALBUMIN 2.5 g/dL (3.4-4.8); ANION GAP 4 (5-15); ASPARTATE AMINOTRANSFERASE 17 U/L (10-37); CALCIUM 8.7 mg/dL (8.4-11.0); CHLORIDE 97 mmol/L (98-107); CHOLESTEROL 144 mg/dL (<200); CREATININE 1.12 mg/dL (0.55-1.30); GLUCOSE 103 mg/dL (70-99); HDL CHOLESTEROL 46 mg/dL (>45); THYROID STIMULATING HORMONE 0.36 uIu/mL (0.34-4.82); TOTAL BILIRUBIN 0.4 mg/dL (0.0-1.0); TRIGLYCERIDES 169 mg/dL (30-150); UREA NITROGEN, BLOOD 14 mg/dL (8-21)
[2022-09-17] MEDS: SENNOSIDES/DOCUSATE SODIUM 1 TAB TABLET(SENOKOT-S) PO SCH ×2 (09:04→20:20)
[2022-09-17] MEDS: FINASTERIDE 5 MG TABLET (PROSCAR) PO SCH (09:04)
[2022-09-17] MEDS: CARBIDOPA/LEVODOPA 25/100 MG TABLET PO SCH ×2 (09:04→20:05)
[2022-09-17] MEDS: GABAPENTIN 300 MG CAPSULE PO SCH ×3 (09:05→20:20)
[2022-09-17] MEDS: PRAMIPEXOLE DI-HCL 1 MG TABLET PO SCH ×3 (09:09→20:20)
[2022-09-17] MEDS: COMTAN 200 MG TAB PO SCH (09:10)
[2022-09-17 11:55] VITALS: BP_SYST 105
[2022-09-17 13:51] LABS: BILIRUBIN,URINE NEGATIVE (NEGATIVE); BLOOD, URINE 2+ (NEGATIVE); CLARITY/URINE CLEAR (CLEAR); COLOR,URINE YELLOW (YELLOW); GLUCOSE,URINE NEGATIVE (NEGATIVE); KETONES,URINE TRACE (NEGATIVE); LEUKOCYTE ESTERASE ,URINE NEGATIVE (NEGATIVE); NITRITE, URINE NEGATIVE (NEGATIVE); PROTEIN URINE TRACE (NEGATIVE); UROBILINOGEN,URINE 0.2 (0.2-1.0)
[2022-09-17 14:00] LABS: BACTERIA,URINE RARE /HPF (None Seen); MUCUS,URINE 1+ /LPF (None Seen); WBC,URINE 0-3 /HPF (0-3)
[2022-09-17 15:42] VITALS: BP_SYST 121
[2022-09-17] MEDS ORDERED: ALBUTEROL SULFATE 0.083% 2.5 MG/3 ML VIAL.NEB INH ONE (17:00)
[2022-09-17] MEDS ORDERED: ACETYLCYSTEINE 10% 4 ML VIAL (RT) INH ONE (17:00)
[2022-09-17] MEDS ORDERED: IPRATROPIUM/ALBUTEROL SULFATE 3 ML AMPUL.NEB (DUONEB) INH PRN (17:45)
[2022-09-17] MEDS ORDERED: IPRATROPIUM/ALBUTEROL SULFATE 3 ML AMPUL.NEB (DUONEB) INH SCH (17:45)
[2022-09-17 19:00] VITALS: BP_SYST 111
[2022-09-17 20:00] VITALS: BP_SYST 111
[2022-09-17] MEDS: ALBUTEROL SULFATE 0.083% 2.5 MG/3 ML VIAL.NEB INH SCH (20:15)
[2022-09-17] MEDS: ACETYLCYSTEINE 10% 4 ML VIAL (RT) INH SCH (20:15)
[2022-09-17] MEDS: TAMSULOSIN HCL 0.4 MG CAP PO SCH (20:20)
[2022-09-17] MEDS: INSULIN REGULAR, HUMAN 100 UNITS/ML, 3 ML VIAL (humuLIN R) SUBCUT PRN (21:06)
[2022-09-18 00:16] VITALS: BP_SYST 133
[2022-09-18] MEDS: PIPERACILLIN/TAZO 4.5 GM in NS 100 ML IV SCH ×2 (05:10→14:22)
[2022-09-18] MEDS: INSULIN REGULAR, HUMAN 100 UNITS/ML, 3 ML VIAL (humuLIN R) SUBCUT PRN (05:24)
[2022-09-18] MEDS: GLIMEPIRIDE 2 MG TABLET PO SCH ×2 (06:33→17:12)
[2022-09-18] MEDS: ACETYLCYSTEINE 10% 4 ML VIAL (RT) INH SCH ×2 (07:17→15:12)
[2022-09-18] MEDS: ALBUTEROL SULFATE 0.083% 2.5 MG/3 ML VIAL.NEB INH SCH ×2 (07:17→15:12)
[2022-09-18] MEDS: SENNOSIDES/DOCUSATE SODIUM 1 TAB TABLET(SENOKOT-S) PO SCH (09:00)
[2022-09-18] MEDS: CARBIDOPA/LEVODOPA 25/100 MG TABLET PO SCH (09:30)
[2022-09-18] MEDS: COMTAN 200 MG TAB PO SCH (09:30)
[2022-09-18] MEDS: PRAMIPEXOLE DI-HCL 1 MG TABLET PO SCH ×2 (09:30→14:22)
[2022-09-18] MEDS: GABAPENTIN 300 MG CAPSULE PO SCH ×2 (09:30→12:11)
[2022-09-18] MEDS: FINASTERIDE 5 MG TABLET (PROSCAR) PO SCH (09:40)
[2022-09-18 12:50] VITALS: BP_SYST 156
[2022-09-18 12:51] VITALS: BP_SYST 156
[2022-09-18 14:49] VITALS: BP_SYST 156
[2022-09-18 18:08] VITALS: BP_SYST 131
[2022-09-18] MEDS ORDERED: PIPE4.5F2 IV (19:30)
[2022-09-18 20:00] VITALS: BP_SYST 143
== END 2022-09-18 19:00 | DRG 193 ==
LOC: SED 12:02 → STU 18:03
PROVIDERS: ADMIT Family Medicine; ATTEND Family Medicine
PROC: 4A00X4Z Measurement of Central Nervous Electrical Activity, External Approach (ICD-10-PCS; principal; 2022-09-15)
DX: J18.9 Pneumonia, unspecified organism (principal); J96.01 Acute respiratory failure with hypoxia; G93.40 Encephalopathy, unspecified; E78.00 Pure hypercholesterolemia, unspecified; G20 Parkinson's disease; E11.40 Type 2 diabetes mellitus with diabetic neuropathy, unspecified; G89.4 Chronic pain syndrome; N40.0 Benign prostatic hyperplasia without lower urinary tract symptoms; M54.50 Low back pain, unspecified; E11.51 Type 2 diabetes mellitus with diabetic peripheral angiopathy without gangrene; I95.9 Hypotension, unspecified; I35.0 Nonrheumatic aortic (valve) stenosis; Z20.822 Contact with and (suspected) exposure to COVID-19; I10 Essential (primary) hypertension; Z88.8 Allergy status to other drugs, medicaments and biological substances; Z79.899 Other long term (current) drug therapy; Z86.718 Personal history of other venous thrombosis and embolism
CPT/HCPCS: 36415; 70450-TC; 71045; 71275; 75635; 76376; 80053; 80061; 81000; 82962; 83735; 83880; 84443; 84484; 85025; 85379; 87086; 93005; 93306; 94640; 94760; 95816; 96365; 96367; 97110-GP; 97112-GP; 97116-GP; 97530-GP; 99285; G0378; J0456; J0696; J2543; J7030; J7608; J7613; Q9967

== ENCOUNTER 2022-10-18 21:26 | Inpatient (IN) | payer OTHER, MEDICARE ==
[~2022-10-18] VITALS: Ht 170.2 cm; Wt 74.8 kg
[~2022-10-18 21:26] MED LIST changes: -DILT180C67 PO; -METF-1069 PO; +PIPE4.5F2 IV
[2022-10-18 21:38] VITALS: BP_SYST 135
--- NOTE | 2022-10-18 21:44 | NUR ---
Patient arrived to ED 6 for c/o right hip and back pain. Patient said that he was at home and patient was on wheelchair when right hip pain started. Patient's family called 911 and ambulance came to pick patient up. Patient said that he has history of neuropathy. Patient alert and oriented x 3. No neuro deficits. Patient respiration even and unlabored. No shortness of breath noted. Vital signs stable.
--- NOTE | 2022-10-18 21:50 | NUR ---
Pt placed in Bed 6. Report given to ANA Dickey.
[2022-10-18] MEDS ORDERED: KETOROLAC TROMETHAMINE 30 MG VIAL IM ONE (22:30)
[2022-10-18] MEDS ORDERED: LIDOCAINE PATCH 5% 1 EA TP ONE (22:30)
[2022-10-18] MEDS ORDERED: methocarbamoL 500 MG TABLET ONE (22:40)
[2022-10-18] MEDS ORDERED: methocarbamoL 500 MG TABLET PO ONE (22:45)
[2022-10-18] MEDS ORDERED: MORPHINE 4 MG INJ. 4 MG/ML VIAL IM ONE (23:15)
[2022-10-19] MEDS ORDERED: ONDANSETRON HCL 4 MG/2 ML VIAL IVP PRN (01:15)
--- NOTE | 2022-10-19 01:21 | NUR ---
Admit bed requested Patient will be admitted to care of . Admitted to medsurge unit. Diagnosis low back pain Inpatient (Yes or No) yes Observation (Yes or No) no Orientation concerns or request close to nursing station (Yes or No) no Covid Status negative On vent or bipap no Isolation requirements standard Needs a sitter no From Home (Yes or if No enter name of facility) yes Requires Dialysis (Yes or No) no Med Rec Completed (Yes of No) yes
--- NOTE | 2022-10-19 02:37 | NUR ---
Admit bed requested Patient will be admitted to care of . Admitted to MEDSURGE unit. Diagnosis LOW BACK PAIN Inpatient (Yes or No) YES Observation (Yes or No) NO Orientation concerns or request close to nursing station (Yes or No) NO Covid Status NEG On vent or bipap NO Isolation requirements YES FLU POS Needs a sitter NO From Home (Yes or if No enter name of facility) YES Requires Dialysis (Yes or No) NO Med Rec Completed (Yes of No) YES
--- NOTE | 2022-10-19 03:09 | NUR ---
Patient will be admitted to care of alli RN. Admitted to unit. Will go to room . Belongings list completed. Complete and up to date summary report printed. SBAR report to be given at bedside with opportunity for questions.
--- NOTE | 2022-10-19 03:15 | NUR ---
ADMISSION NOTE Received patient from ER via natalee, received report from FABBY PEREZ. Patient admitted with diagnosis of LOWER BACK PAIN. Patient oriented to hospital routine, call light, toileting and safety-patient verbalized understanding.
[2022-10-19 03:21] LABS: BASOPHILS % (AUTO) 0.2 % (0.0-2.0); EOSINOPHILS # (AUTO) 0.2 K/uL (0.0-0.4); EOSINOPHILS % (AUTO) 2.6 % (0.0-4.0); HEMATOCRIT 27.1 % (36-54); LYMPHOCYTES # (AUTO) 1.3 K/uL (1.0-5.5); LYMPHOCYTES % (AUTO) 20.8 % (20.5-51.5); MEAN CORPUSCULAR HEMOGLOBIN 30 pg (27-31); MEAN CORPUSCULAR HGB CONC 33 % (32-36); MEAN CORPUSCULAR VOLUME 92 fL (79.0-98.0); MONOCYTES # (AUTO) 0.3 K/uL (0.0-1.0); MONOCYTES % (AUTO) 5.1 % (1.7-9.3); NEUTROPHILS # (AUTO) 4.6 K/uL (1.8-7.7); NEUTROPHILS % (AUTO) 71.3 % (40.0-70.0); PLATELET COUNT (AUTO) 305 K/uL (130-430); RED BLOOD CELL COUNT(AUTO) 2.96 MIL/uL (4.2-6.2); RED CELL DISTRIBUTION WIDTH 14.5 % (9.0-15.0); WHITE BLOOD COUNT (AUTO) 6.5 K/uL (4.8-10.8)
--- NOTE | 2022-10-19 03:22 | NUR ---
Bedside report given to ANA Jimenez.
--- NOTE | 2022-10-19 03:30 | NUR ---
Initial RN notes Pt AAOx3, no s/s distress noted. Pain is tolerable at this time. IV saline lock L. AC 22G. Call light within/items within reach. BEd low, locked, siderails up x3, alarm on. To monitor.
[2022-10-19 03:31] VITALS: BP_SYST 138
[2022-10-19 03:49] LABS: ALANINE AMINOTRANSFERASE 17 U/L (12-78); ALBUMIN 2.8 g/dL (3.4-4.8); ANION GAP 7 (5-15); ASPARTATE AMINOTRANSFERASE 20 U/L (10-37); CALCIUM 9.1 mg/dL (8.4-11.0); CHLORIDE 99 mmol/L (98-107); CREATININE 1.18 mg/dL (0.55-1.30); GLUCOSE 154 mg/dL (70-99); TOTAL BILIRUBIN 0.4 mg/dL (0.0-1.0); UREA NITROGEN, BLOOD 22 mg/dL (8-21)
--- NOTE | 2022-10-19 04:05 | NUR ---
CXR AT BEDSIDE.
--- NOTE | 2022-10-19 06:28 | NUR ---
Closing notes Pt asleep, easily awakens, no s/s distress noted. No c/o pain. BS checked 161 and pt also checked thru his cellphone glucose radha and got 145. Pt refused insulin at this time. IV saline lock L. AC clear and patent. Call light within reach. Bed low, locked, siderails up x3, alarm on. To endorse to AM nurse.
[2022-10-19] MEDS: INSULIN REGULAR, HUMAN 100 UNITS/ML, 3 ML VIAL (humuLIN R) SUBCUT PRN ×3 (06:29→21:39)
[2022-10-19 07:45] VITALS: BP_SYST 149
--- NOTE | 2022-10-19 07:45 | NUR ---
OPENING NOTE Patient resting in bed. A/O x 4, Croatian speaking. Patient Breathing even and unlabored on RA saturations at 95%. No pain, no distress, no SOB noted. Patient has urinal at bedside. Patient on CCHO diet. Patient has IV to LAC 22G on SL. Bed is locked in lowest position. Call light within reach, all needs met, will continue to monitor.
[2022-10-19] MEDS ORDERED: SENNOSIDES 8.6 MG TABLET PO SCH (09:00)
[2022-10-19] MEDS ORDERED: PIPERACILLIN IV SCH (09:00)
[2022-10-19] MEDS ORDERED: DEX IS PIGGYBACK IV SCH (09:00)
[2022-10-19] MEDS ORDERED: IRBESARTAN 150 MG TABLET (AVAPRO) PO SCH (09:00)
[2022-10-19] MEDS ORDERED: TAZOBACTAM IV SCH (09:00)
[2022-10-19] MEDS ORDERED: FINASTERIDE 5 MG TABLET (PROSCAR) PO ONE (09:30)
[2022-10-19] MEDS ORDERED: GABAPENTIN 300 MG CAPSULE PO ONE (09:30)
[2022-10-19] MEDS: CARBIDOPA/LEVODOPA 25/100 MG TABLET PO SCH ×2 (09:50→21:27)
[2022-10-19] MEDS ORDERED: PRAMIPEXOLE DI-HCL 1 MG TABLET PO ONE (10:00)
[2022-10-19] MEDS ORDERED: COMTAN 200 MG TAB PO ONE (10:15)
[2022-10-19] MEDS ORDERED: MINERAL OIL 30 ML UDC PO ONE (11:00)
[2022-10-19] MEDS: GABAPENTIN 300 MG CAPSULE PO SCH ×2 (11:58→21:27)
[2022-10-19 12:00] VITALS: BP_SYST 142
--- NOTE | 2022-10-19 12:15 | NUR ---
ROUNDS: Patient resting in bed. Patient Breathing even and unlabored on RA. No pain, no distress, no SOB noted. Bed is locked in lowest position. Call light within reach, all needs met, will continue to monitor.
--- NOTE | 2022-10-19 12:54 | NUR ---
MD Tesha Parkinson gave new orders for MRI after consulting with patient at bedside. Orders carried out.
[2022-10-19] MEDS: PRAMIPEXOLE DI-HCL 1 MG TABLET PO SCH ×2 (14:45→21:37)
[2022-10-19 16:23] VITALS: BP_SYST 145
[2022-10-19] MEDS: GLIMEPIRIDE 2 MG TABLET PO SCH (16:31)
--- NOTE | 2022-10-19 16:32 | NUR ---
MEDICATION REFUSAL Patient refused to take Glimepiride medication. Per patient he does not need it. I educated that it is for diabetes and to be taken before meals but patient still refused. Medication returned to medication room.
--- NOTE | 2022-10-19 18:57 | NUR ---
CLOSING NOTE Patient resting in bed. A/O x 4, Sinhala speaking. Patient Breathing even and unlabored on RA saturations at 95%. No pain, no distress, no SOB noted. Patient has urinal at bedside. Patient on CCHO diet. Patient has IV to LAC 22G on SL. Bed is locked in lowest position. Call light within reach, all needs met, will endorse to nightshift nurse.
[2022-10-19 20:15] VITALS: BP_SYST 115
--- NOTE | 2022-10-19 20:15 | NUR ---
Opening notes Pt alert, awake, no s/s distress, no c/o pain. IV saline lock L. AC 22G good blood return. Call light/items within reach. Bed low, locked, siderails up x3, alarm on. To monitor.
[2022-10-19] MEDS: MINERAL OIL 30 ML UDC PO SCH (21:00)
[2022-10-19] MEDS: TAMSULOSIN HCL 0.4 MG CAP PO SCH (21:27)
[2022-10-19] MEDS: SENNOSIDES/DOCUSATE SODIUM 1 TAB TABLET(SENOKOT-S) PO SCH (21:27)
--- NOTE | 2022-10-19 21:33 | NUR ---
CALLED BACK ; DR BACA CALLED BACK , INFORMED THAT PT IS POSITIVE FOR INFLUENZA A , BUT NO TAMIFLU FOR THIS PT . STATED NO NEED FOR TAMIFLU
[2022-10-20 00:18] VITALS: BP_SYST 133
[2022-10-20] MEDS: INSULIN REGULAR, HUMAN 100 UNITS/ML, 3 ML VIAL (humuLIN R) SUBCUT PRN ×2 (06:30→22:48)
[2022-10-20] MEDS: GLIMEPIRIDE 2 MG TABLET PO SCH ×2 (06:34→16:54)
[2022-10-20] MEDS: MORPHINE 4 MG INJ. 4 MG/ML VIAL IVP PRN ×2 (06:43→09:12)
--- NOTE | 2022-10-20 06:43 | NUR ---
Closing notes Pt alert, awake. BS checked 164, 2 units Regular insulin administered per protocol. Pt c/o severe R. hip/thigh pain. Medicated with Morphine 4mg IVP as needed. Call light within reach. Bed low, locked, siderails up x3, alarm on. To endorse to AM nurse.
[2022-10-20 08:00] VITALS: BP_SYST 113
[2022-10-20] MEDS: COMTAN 200 MG TAB PO SCH (08:37)
[2022-10-20] MEDS: MINERAL OIL 30 ML UDC PO SCH ×2 (08:37→22:41)
[2022-10-20] MEDS: CARBIDOPA/LEVODOPA 25/100 MG TABLET PO SCH ×2 (08:37→22:41)
[2022-10-20] MEDS: GABAPENTIN 300 MG CAPSULE PO SCH ×3 (08:37→22:40)
[2022-10-20] MEDS: PRAMIPEXOLE DI-HCL 1 MG TABLET PO SCH ×3 (08:38→22:53)
[2022-10-20] MEDS: LOSARTAN POTASSIUM 50 MG TABLET (COZAAR) PO SCH (08:43)
[2022-10-20 11:33] VITALS: BP_SYST 117
[2022-10-20] MEDS: SENNOSIDES/DOCUSATE SODIUM 1 TAB TABLET(SENOKOT-S) PO SCH ×2 (12:01→22:40)
[2022-10-20] MEDS: FINASTERIDE 5 MG TABLET (PROSCAR) PO SCH (12:02)
--- NOTE | 2022-10-20 15:27 | NUR ---
P.T. NOTES P.T. EVAL COMPLETED; REFER TO EVAL FOR DETAILS.
[2022-10-20 15:29] VITALS: BP_SYST 101
--- NOTE | 2022-10-20 15:30 | NUR ---
PATIENT LEFT TO GET MRI OF THE PELVIS
--- NOTE | 2022-10-20 16:47 | NUR ---
PATIENT CAME BACK FROM MRI IN STABLE CONDITION.
[2022-10-20 20:00] VITALS: BP_SYST 143
[2022-10-20] MEDS: TAMSULOSIN HCL 0.4 MG CAP PO SCH (22:45)
[2022-10-21 00:05] VITALS: BP_SYST 139
[2022-10-21] MEDS: GLIMEPIRIDE 2 MG TABLET PO SCH ×2 (06:30→18:43)
[2022-10-21 08:00] VITALS: BP_SYST 106
[2022-10-21] MEDS: SENNOSIDES/DOCUSATE SODIUM 1 TAB TABLET(SENOKOT-S) PO SCH ×2 (10:14→23:00)
[2022-10-21] MEDS: LOSARTAN POTASSIUM 50 MG TABLET (COZAAR) PO SCH (10:15)
[2022-10-21] MEDS: FINASTERIDE 5 MG TABLET (PROSCAR) PO SCH (10:15)
[2022-10-21] MEDS: CARBIDOPA/LEVODOPA 25/100 MG TABLET PO SCH ×2 (10:15→23:00)
[2022-10-21] MEDS: MINERAL OIL 30 ML UDC PO SCH ×2 (10:16→23:00)
[2022-10-21] MEDS: PRAMIPEXOLE DI-HCL 1 MG TABLET PO SCH ×3 (10:16→23:00)
[2022-10-21] MEDS: COMTAN 200 MG TAB PO SCH (10:16)
[2022-10-21] MEDS: GABAPENTIN 300 MG CAPSULE PO SCH ×3 (10:16→23:00)
[2022-10-21 11:43] VITALS: BP_SYST 135
--- NOTE | 2022-10-21 11:54 | NUR ---
CONSULTATION PAGED7 REASON FOR CONSULTATION:RIGHT HIP PAIN WAS CONSULT CALLED?Y PERSON WHO WAS NOTIFIED:FÉLIX CONSULTING PHYSICIAN:AVERY MILES (PAUL HORN BOTTOM TURNING LATHE TENDER) [facility] TECHNICIAN SPECIALTY:[facility] TECHNICIAN PHONE NUMBER:[phone] REQUESTING PHYSICIAN:BEATRICE MOSES
[2022-10-21 15:23] VITALS: BP_SYST 100
[2022-10-21 20:00] VITALS: BP_SYST 116
[2022-10-21] MEDS: TAMSULOSIN HCL 0.4 MG CAP PO SCH (23:00)
[2022-10-22 00:24] VITALS: BP_SYST 138
[2022-10-22] MEDS: GLIMEPIRIDE 2 MG TABLET PO SCH ×2 (07:55→17:25)
[2022-10-22] MEDS: GABAPENTIN 300 MG CAPSULE PO SCH ×3 (10:17→21:23)
[2022-10-22] MEDS: CARBIDOPA/LEVODOPA 25/100 MG TABLET PO SCH ×2 (10:17→21:23)
[2022-10-22] MEDS: MINERAL OIL 30 ML UDC PO SCH ×2 (10:17→21:23)
[2022-10-22] MEDS: PRAMIPEXOLE DI-HCL 1 MG TABLET PO SCH ×3 (10:17→21:30)
[2022-10-22] MEDS: COMTAN 200 MG TAB PO SCH (10:17)
[2022-10-22] MEDS: SENNOSIDES/DOCUSATE SODIUM 1 TAB TABLET(SENOKOT-S) PO SCH ×2 (10:17→21:23)
[2022-10-22] MEDS: FINASTERIDE 5 MG TABLET (PROSCAR) PO SCH (10:18)
[2022-10-22] MEDS: LOSARTAN POTASSIUM 50 MG TABLET (COZAAR) PO SCH (10:18)
[2022-10-22 11:31] VITALS: BP_SYST 146
[2022-10-22] MEDS ORDERED: BISACODYL 10 MG/SUPPOSITORY RC PRN (13:15)
--- NOTE | 2022-10-22 15:15 | NUR ---
CM: Discussed dc placement with pt per dr. Allen 's recommendation. The pt agreed with [facility] , pt will need influenza A positive iso room. The referral faxed to [facility] today, alise Eduardo. Addendum: 10/22/22 at 1625 by Keturah Gbison RN The pt is accepted to [facility], room 105B report # [id number] [phone]. ANA Melendez made aware, pt will need final dc order.
[2022-10-22 15:24] VITALS: BP_SYST 99
--- NOTE | 2022-10-22 17:24 | NUR ---
PHYSICAL THERAPY CO-SIGN The Physical Therapy Progress Notes documented by Prop Maker have been reviewed. Reviewed/Co-Signed by: Olga Lidia Parra PT Documentation Done by:NOREEN GOEL CARGO OPERATIONS AGENT Addendum: 10/22/22 at 1725 by Olga Lidia Parra PT Amended: Links added.
--- NOTE | 2022-10-22 18:16 | NUR ---
A/Ox3,vss,c/o constipation,give laxative meds per dr order and dulcolax suppository as prn order for constipation,pt has 1 large BM after meds given,roslyn care done ,diaper changed needs attended,call light & personal items within pt reach,safety maintained continue to monitor pt.
[2022-10-22 20:00] VITALS: BP_SYST 135
[2022-10-22] MEDS: TAMSULOSIN HCL 0.4 MG CAP PO SCH (21:23)
[2022-10-23] VITALS: BP_SYST 124
[2022-10-23] MEDS: GLIMEPIRIDE 2 MG TABLET PO SCH (06:50)
[2022-10-23 08:00] VITALS: BP_SYST 145
[2022-10-23] MEDS: SENNOSIDES/DOCUSATE SODIUM 1 TAB TABLET(SENOKOT-S) PO SCH (09:01)
[2022-10-23] MEDS: MINERAL OIL 30 ML UDC PO SCH (09:01)
[2022-10-23] MEDS: GABAPENTIN 300 MG CAPSULE PO SCH ×2 (09:01→11:59)
[2022-10-23] MEDS: CARBIDOPA/LEVODOPA 25/100 MG TABLET PO SCH (09:02)
[2022-10-23] MEDS: LOSARTAN POTASSIUM 50 MG TABLET (COZAAR) PO SCH (09:02)
[2022-10-23 11:31] VITALS: BP_SYST 140
--- NOTE | 2022-10-23 11:52 | NUR ---
Spoke to patient's son AJ-he stated they will be taking the patient home, they do not want the patient to go to [facility], the family will be coming to take the patient home. Spoke to Dr Allen- he gave the order for Home Health to resume with [facility] [phone]. Referral sent to [facility] to resume.
[2022-10-23] MEDS: PRAMIPEXOLE DI-HCL 1 MG TABLET PO SCH (11:59)
[2022-10-23] MEDS: FINASTERIDE 5 MG TABLET (PROSCAR) PO SCH (11:59)
[2022-10-23] MEDS: MORPHINE 4 MG INJ. 4 MG/ML VIAL IVP PRN (12:00)
[2022-10-23 12:32] VITALS: BP_SYST 140
--- NOTE | 2022-10-23 14:04 | NUR ---
PATIENT DC VIA WHEELCHAIR ASSISTED BY HIS FAMILY MEMBER. ALL THE BELONGINGS SENT WITH THE PATIENT. PATIENT IN STABLE CONDITION.
--- NOTE | 2022-11-04 12:32 | NUR ---
[employer] DISTRICT [employer] MANAGEMENT OFFICER made a Post Discharge Follow Up Phone Call to to recently discharged pt, Paolo and spoke to son MILAD who stated his dad is back at the hospital, this time [facility]. Son MILAD stated he was in agreement with to send Paolo to a SNF, but pt and pts' refused. DISTRICT FIRE MANAGEMENT OFFICER thanked MILAD for the update.
== END 2022-10-23 13:40 | disposition home health service (06) | DRG 552 ==
LOC: SED 21:26 → SMU 10-19 01:12
PROVIDERS: ADMIT Family Medicine; ATTEND Family Medicine
DX: M54.16 Radiculopathy, lumbar region (principal); I82.401 Acute embolism and thrombosis of unspecified deep veins of right lower extremity; E44.0 Moderate protein-calorie malnutrition; M79.81 Nontraumatic hematoma of soft tissue; E11.40 Type 2 diabetes mellitus with diabetic neuropathy, unspecified; Z20.822 Contact with and (suspected) exposure to COVID-19; J10.1 Influenza due to other identified influenza virus with other respiratory manifestations; I10 Essential (primary) hypertension; E78.00 Pure hypercholesterolemia, unspecified; N40.0 Benign prostatic hyperplasia without lower urinary tract symptoms; G20 Parkinson's disease; K59.09 Other constipation; Z86.718 Personal history of other venous thrombosis and embolism; Z88.8 Allergy status to other drugs, medicaments and biological substances; E87.5 Hyperkalemia; Z68.25 Body mass index [BMI] 25.0-25.9, adult
CPT/HCPCS: 36415; 71045; 72170-TC; 72192-TC; 72195; 73552; 76376; 80053; 85025; 87081; 96372; 96374; 97110-GP; 97112-GP; 97530-GP; 99285; J1815; J1885; J2270